=== PATIENT | male | born 1985 | race Caucasian/White ===

== ENCOUNTER 2016-10-05 13:57 | Emergency (ER) | payer OTHER ==
[~2016-10-05] VITALS: Ht 165.1 cm; Wt 84.0 kg
[~2016-10-05 13:57] MED LIST: BACTRIM DS1 TAB PO; MOTRIN800 MG PO; PRILOSEC40 MG PO
[2016-10-05 16:19] LABS: BASOPHIL % 0.4 % (0-2); PLATELET COUNT 211 x10^3mcL (130-400); RED CELL DISTRIBUTION WIDTH 13.6 % (11.5-14.5)
[2016-10-05 16:20] LABS: CARBON DIOXIDE 31.7 mmol/L (21-32); POTASSIUM SERUM 4.8 mmol/L (3.5-5.1)
[2016-10-05 16:22] LABS: CREATININE SERUM 14.5 mg/dL (0.7-1.3)
[2016-10-05 17:44] VITALS: BP 128/74
== END 2016-10-05 17:44 | disposition home or self-care (01) ==
LOC: ED 13:57
PROVIDERS: Emergency Medicine
DX: R07.89 Other chest pain (principal); F41.9 Anxiety disorder, unspecified; I12.0 Hypertensive chronic kidney disease with stage 5 chronic kidney disease or end stage renal disease; N18.6 End stage renal disease
CPT/HCPCS: 36415; Q0092

== ENCOUNTER 2017-01-23 06:53 | Inpatient (IN) | payer OTHER ==
[~2017-01-23] VITALS: Ht 165.1 cm; Wt 73.9 kg
--- NOTE | 2017-01-23 07:11 | NUR ---
REC'D A 31/M IN [facility]THO WITH C/O SOB SINCE 4AM. PER MEDIC, PT REPORTS LEFT STERNAL CHEST PAIN, AND "ITS DIFFICULT TO TAKE DEEP BREATH". PT DESCRIBES THE PAIN INTERMITTENT, SHARP, NONRADIATING, NONPROVOKED. HX OF DIALYSIS. PT AAOX4, SPEAKING IN CLEAR COMPLETE SENTENCES, RESP E/U, SHUNT NOTED TO LEFT FOREARM. ON CM, CALL LIGHT WITHIN REACH, WILL CONTINUE TO MONITOR.
--- NOTE | 2017-01-23 07:16 | NUR ---
REPORT GIVEN TO JUSTIN BOND TO ASSUME CARE OF THE PT.
--- NOTE | 2017-01-23 07:24 | NUR ---
UNABLE TO START IV AND GIVE ORDERED MEDICATIONS AT THIS TIME DUE TO PATIENT DECLINING. EXPLAINED IMPORTANCE OF MEDICATIONS TO PATIENT; WILL TRY AGAIN AFTER A FEW MINS.
[2017-01-23 07:32] LABS: BASOPHIL % 0.5 % (0-2); PLATELET COUNT 192 x10^3mcL (130-400); RED CELL DISTRIBUTION WIDTH 13.7 % (11.5-14.5)
[2017-01-23 07:43] LABS: BILIRUBIN TOTAL 1.1 mg/dL (0.20-1.00); CALCIUM 8.3 mg/dL (8.5-10.1); CARBON DIOXIDE 31.5 mmol/L (21-32); TOTAL PROTEIN, SERUM 6.6 g/dL (6.4-8.2)
[2017-01-23 07:58] LABS: ALBUMIN 3.2 g/dL (3.4-5.0); CREATININE SERUM 11.2 mg/dL (0.7-1.3)
[2017-01-23] MEDS ORDERED: TOPROL XL25 MG (08:01)
[2017-01-23] MEDS ORDERED: NORVASC2.5 MG (08:01)
[2017-01-23] MEDS ORDERED: VELPHORO500 MG (08:02)
--- NOTE | 2017-01-23 08:11 | NUR ---
PT C/O NAUSEA; ZOFRAN GIVEN IVP.
--- NOTE | 2017-01-23 08:11 | NUR ---
IV STARTED AND PT MEDICATED PER MD ORDER. SEE EMAR.
--- NOTE | 2017-01-23 08:20 | NUR ---
PT STATES HE GETS DIALYSIS MWF AND DID GO TO DIALYSIS ON TUESDAY. PT HAS SHUNT ON LEFT ARM.
[2017-01-23 08:29] LABS: T3 TOTAL 1.42 ng/mL
[2017-01-23 08:37] LABS: MAGNESIUM 2.5 mg/dL (1.8-2.4); PHOSPHOROUS 6.6 mg/dL (2.5-4.9)
[2017-01-23 08:41] LABS: CHOLESTEROL/HDL RATIO 4.2
[2017-01-23 08:46] LABS: FREE T4 1.32 ng/dL (0.76-1.46); FREE THYROXINE INDEX 3.1 ug/dL (1.4-4.5); T4(THYROXINE) 9.5 ug/dL (4.7-13.3)
--- NOTE | 2017-01-23 09:01 | NUR ---
PT IS RESTING ON GURNEY IN NO ACUTE DISTRESS. PT REPORTS HE IS ABLE TO BREATHE BETTER AND HAS NO PAIN.
--- NOTE | 2017-01-23 09:50 | NUR ---
PT SLEEPING; ON FULL CM; NO S/S OF DISTRESS.
--- NOTE | 2017-01-23 10:05 | NUR ---
PT STATES HE IS UNABLE TO GIVE URINE AT THIS TIME.
--- NOTE | 2017-01-23 10:55 | NUR ---
PAGE OUT TO RESIDENT BRENTON FOR DIET ORDER; PT ED HOLD DUE TO NO BEDS AT THIS TIME
--- NOTE | 2017-01-23 11:00 | NUR ---
SPOKE WITH DR. FARRIS FOR A DIET ORDER, REPORTS HE WILL PUT IN A DIET FOR PT
--- NOTE | 2017-01-23 12:02 | NUR ---
PT AAO4, NO ACUTE DISTRESS, C/O 08/14 HEADACHE, PT NSR ON CM, DENIES CHEST PAIN AND DENIES SOB, PT BP ELEVATED REPORTS HE DID NOT TAKE BP MEDS THIS AM, WILL CALL RESIDENT TO PUT IN PT HOME MEDS OR HTN MED
--- NOTE | 2017-01-23 12:09 | NUR ---
SPOKE WITH TO NOTIFY OF PT BP; PER HE WILL COME EVALUATE PT AND PLACE ORDERS FOR BP MEDS.
--- NOTE | 2017-01-23 12:16 | NUR ---
PT C/O HEADACHE. TYLENOL GIVEN PER ADMIT ORDER.
--- NOTE | 2017-01-23 12:20 | NUR ---
PT LUNCH TRAY ARRIVED; TRAY GIVEN TO PT.
--- NOTE | 2017-01-23 12:50 | NUR ---
CALLED PHARMACY TO VERIFY BP MEDS
--- NOTE | 2017-01-23 13:08 | NUR ---
REPORT TO SALMA ANDERSON TO ASSUME CARE OF PT
--- NOTE | 2017-01-23 14:25 | NUR ---
PT SITTING UP ON BED WATCHING TV AND EATING FRUIT. NO SIGNS OF SOB
--- NOTE | 2017-01-23 14:48 | NUR ---
REPORT CALLED TO JUSTIN DOMINGUEZ TO ASSUME CARE.
[2017-01-23 15:06] VITALS: BP 166/114
[2017-01-23 15:07] VITALS: BP 166/114
--- NOTE | 2017-01-23 15:14 | NUR ---
RECEIVED PATIENT FROM ED VIA GUERNEY, PATIENT ALERT AND ORIENTED, TELE # 55 SR, IV ACCESS TO RFA WNL, NO C/O PAIN AT THIS TIME, AV SHUNT TO LUE WITH BRUIT AND THRILL, ORIENTED PATIENT TO ROOM AND SURROUNDINGS, BED IN LOW POSITION, BED RAILS UP X 2, CALL LIGHT WITHIN REACH, WILL CONTINUE TO MONITOR
[2017-01-23 15:40] VITALS: BP 166/114
[2017-01-23 17:45] VITALS: BP 157/109
--- NOTE | 2017-01-23 18:02 | NUR ---
RECEIVED REPORT FROM ALBERTO ANDERSON. PT IN NO ACUTE DISTRESS AT THIS TIME. C/O SOB. RECEIVING 4L OXYGEN VIA NC. NO ACUTE RESP DISTRESS. DENIES CP OR PRESSURE. AV SHUNT TO L ARM WITH BRUIT/THRILL PRESENT. IVF INFUSING. BED IN LOW POSITION, CALL LIGHT WITHIN REACH. WILL CONTINUE TO MONITOR.
[2017-01-23 18:33] VITALS: BP 156/102
--- NOTE | 2017-01-23 18:33 | NUR ---
DR. FARRIS NOTIFIED OF BP 156/102. PT ASYMPTOMATIC AT THIS TIME. WILL CONTINUE TO MONITOR.
[2017-01-23] MEDS ORDERED: SENSIPAR90 MG PO (19:52)
--- NOTE | 2017-01-23 19:57 | NUR ---
PT CURRENTLY RESTING IN BED, NO ACUTE DISTRESS. A/O X4. TELE #55 SHOWING SINUS RHYTHM, DENIES CHEST PAIN. PULSES PALPABLE IN ALL EXTREMITIES, NO EDEMA NOTED. LUNG SOUNDS DIMINISHED IN BILATERAL BASES, PT C/O MILD SOB, O2 SAT 95%. BOWEL SOUNDS ACTIVE, LAST BM 01/23/17. OLIGURIC. AV SHUNT NOTED TO PAULETTE LEE MWF. AMBULATORY. SKIN INTACT. DENIES PAIN AT THIS TIME. IV PATENT AND INTACT. BED IN LOWEST POSITION, SIDE RAILS UP X2, CALL LIGHT WITHIN REACH. WILL CONTINUE TO MONITOR.
[2017-01-23 20:48] VITALS: BP 157/104
--- NOTE | 2017-01-23 23:37 | NUR ---
PT C/O SOB, O2 SAT 95%. RT NOTIFIED FOR BREATHING TREATMENT. WILL CONTINUE TO MONITOR.
--- NOTE | 2017-01-24 00:50 | NUR ---
PT CURRENTLY RESTING IN BED, NO ACUTE DISTRESS. WILL CONTINUE TO MONITOR.
[2017-01-24 05:34] VITALS: BP 158/99
--- NOTE | 2017-01-24 06:10 | NUR ---
PT SLEPT PERIODICALLY THROUGHOUT NIGHT, NO ACUTE DISTRESS. ALL NEEDS MET AND ATTENDED TO. NO SIGNIFICANT CHANGES. IV PATENT AND INTACT. BED IN LOWEST POSITION, SIDE RAILS UP X2, SCDS IN PLACE, CALL LIGHT WITHIN REACH. WILL ENDORSE CARE TO ONCOMING NURSE.
--- NOTE | 2017-01-24 08:00 | NUR ---
AAO TIMES 4. TELE # 55 ST 108. LUNGS CTA BUL, SLIGHTLY DIMINISHED RLL. O2 SAT ON 2L NC 98%. BS'S ACTIVE TIMES 4. [place] STRONG. PT DENIES CHEST PAIN, JUST FEELS SOB. PERIPHERAL PULSES PALPABLE. NO EDEMA. AV SHUNT TO LFA WITH GOOD BRUIT/THRILL. SCD BLE. COOPERATIVE.
--- NOTE | 2017-01-24 08:35 | NUR ---
MEDICAL ROUNDS WITH DR ANGELO AND THE MEDICINE TEAM AT 0835. THE PLAN TODAY IS TO GET HD. THEY ARE AWARE THAT THE LATEST BP IS 160/104. PT WILL BE DC'D HOME TOMORROW.
[2017-01-24 08:59] VITALS: BP 160/104
[2017-01-24 13:02] VITALS: BP 156/101
--- NOTE | 2017-01-24 18:00 | NUR ---
AAO TIMES 4. PT'S PRESENT. HE IS ASKING WHEN HE WILL GET HD. TELE # 55 SR 98. SL RFA CDI. COOPERATIVE, BUT IS GETTING IMPATIENT TO GET HD. I TOLD HIM ANOTHER PT IS GETTING HD NOW, AND HES NEXT.
[2017-01-24 18:16] VITALS: BP 168/110
--- NOTE | 2017-01-24 20:00 | NUR ---
PT A/A/O X4. DENIES DIZZINESS AND HEADACHE. BREATH SOUNDS DIMINISHED GENEVIEVE BASES. C/O MILD DIFFICULTY BREATHING. SPO2 94% ON ROOM AIR. PT WAS PUT ON 2L NC. DENIES CHEST PAIN AND PRESSURE THUS FAR, HR 94. BOWEL SOUNDS ACTIVE. NO C/O N/V AND ABD PAIN. AV SHUNT NOTED ON THE LEFT FOREARM WITH POSITIVE BRUIT AND THRILL. HEMODIALYSIS NURSE AT BEDSIDE PREPARING FOR HEMODIALYSIS. IV HEPLOCK INTACT ON THE RIGHT FOREARM. MADE PT COMFORTABLE. PLACED CALL LIGHT WITH IN REACH. WILL CONTINUE TO MONITOR.
[2017-01-24 21:09] VITALS: BP 182/103
--- NOTE | 2017-01-24 21:21 | NUR ---
PATIENTS BLOOD PRESSURE IS 182/103 HR 92. PT CURRENTLY ON HEMODIALYSIS. PT STATED "I DONT WANT ANY BP MEDICATION CAUSE I TANK AFTER HEMODIALYSIS. DR. LONGORIA NOTIFIED. WILL CONTINUE TO MONITOR.
--- NOTE | 2017-01-24 23:06 | NUR ---
PT HEMODIALYSIS DONE. 2.9 LITERS OUT. PT TOLERATED IT WELL. BP 169/83, HR 84. DR. LONGORIA AWARE. NO NEW ORDERS GIVEN. WILL CONTINUE TO MONITOR.
[2017-01-24 23:08] VITALS: BP 169/83
[2017-01-25 00:25] VITALS: BP 153/89
--- NOTE | 2017-01-25 00:25 | NUR ---
PATIENTS BLOOD PRESSURE, 1 HOUR AFTER HEMODIALYSIS IS 153/89 HR 89. WILL CONTINUE TO MONITOR.
[2017-01-25 05:08] VITALS: BP 172/108
--- NOTE | 2017-01-25 05:30 | NUR ---
PT BLOOD PRESSURE 172/108. GAVE PT CATAPRES PO. PT TOLERATED IT WELL. WILL CONTINUE TO MONITOR.
--- NOTE | 2017-01-25 06:29 | NUR ---
PATIENTS BP IS 154/107, HR 76. GAVE PT SCHEDULED METOPROLOL PO EARLY. PT TOLERATED IT WELL. WILL ENDORSE TO THE AM NURSE ACCORDINGLY.
--- NOTE | 2017-01-25 06:31 | NUR ---
LAB CALLED SAYING PATIENTS WANTS LAB DRAW AFTER PT WAKES UP. WILL ENDORSE TO THE AM NURSE ACCORDINGLY.
[2017-01-25 06:36] VITALS: BP 154/107
[2017-01-25 07:03] VITALS: BP 144/96
--- NOTE | 2017-01-25 08:00 | NUR ---
AAO TIMES 4. TELE # 55 SR. BP CURRRENTLY 144/96 THIS AM AT 0703. LUNGS CTA. NO SOB. O2 SAT ON RA 97%. BS'S ACTIVE TIMES 4. LFA AV SHUNT WITH BRUIT AND THRILL. PERIPHERAL PULSES PALPABLE. NO EDEMA. COOPERATIVE. SL TO RFA CDI, PATENT.
[2017-01-25 08:22] LABS: BASOPHIL % 0.5 % (0-2); PLATELET COUNT 192 x10^3mcL (130-400); RED CELL DISTRIBUTION WIDTH 13.7 % (11.5-14.5)
--- NOTE | 2017-01-25 08:24 | NUR ---
DR PULIDO AND THE MEDICINE TEAM SAW PT THIS AM AT 0824, THE PLAN IS TO DC HIM AROUND LUNCH TIME.
[2017-01-25 08:39] LABS: CALCIUM 9.1 mg/dL (8.5-10.1); MAGNESIUM 2.5 mg/dL (1.8-2.4)
[2017-01-25 08:41] LABS: CREATININE SERUM 10.5 mg/dL (0.7-1.3)
[2017-01-25 09:12] VITALS: BP 154/97
[2017-01-25 12:59] VITALS: BP 154/97
--- NOTE | 2017-01-25 13:15 | NUR ---
DC'D SL ANGIO INTACT. GAVE DISCHARGE INSTRUCTIONS. PT VERBALIZED "I UNDERSTAND" TO ALL INSTRUCTIONS.
== END 2017-01-25 13:18 | disposition home or self-care (01) | DRG 203 ==
LOC: ED 06:53 → DU 07:33
PROVIDERS: Emergency Medicine; ADMIT Family Medicine Sports Medicine
PROC: 5A1D70Z Performance of Urinary Filtration, Intermittent, Less than 6 Hours Per Day (ICD-10-PCS; principal; 2017-01-24)
DX: M94.0 Chondrocostal junction syndrome [Tietze] (principal); N17.0 Acute kidney failure with tubular necrosis; J81.0 Acute pulmonary edema; I12.0 Hypertensive chronic kidney disease with stage 5 chronic kidney disease or end stage renal disease; N18.6 End stage renal disease; E44.0 Moderate protein-calorie malnutrition; E83.41 Hypermagnesemia; E83.51 Hypocalcemia; E83.39 Other disorders of phosphorus metabolism; Z99.2 Dependence on renal dialysis; Z68.29 Body mass index [BMI] 29.0-29.9, adult; D64.9 Anemia, unspecified
CPT/HCPCS: 83880; 84439; J1940; J2405; J3010; J3475; J7030; J7620; Q0092

== ENCOUNTER 2017-05-02 18:50 | Inpatient (IN) | payer OTHER ==
[~2017-05-02] VITALS: Ht 165.1 cm; Wt 73.1 kg
[~2017-05-02 18:50] MED LIST changes: +NORVASC2.5 MG; +SENSIPAR90 MG PO; +TOPROL XL25 MG; +VELPHORO500 MG
[2017-05-02 18:58] VITALS: Ht 165.1 cm; Wt 73.1 kg
[2017-05-02 20:01] LABS: BASOPHIL % 0.6 % (0-2); PLATELET COUNT 241 x10^3mcL (130-400)
[2017-05-02 20:03] LABS: RED CELL DISTRIBUTION WIDTH 15.6 % (11.5-14.5)
[2017-05-02 20:32] LABS: BILIRUBIN TOTAL 0.93 mg/dL (0.20-1.00); CALCIUM 9.1 mg/dL (8.5-10.1); CARBON DIOXIDE 29.2 mmol/L (21-32); MAGNESIUM 2.4 mg/dL (1.8-2.4); POTASSIUM SERUM 4.2 mmol/L (3.5-5.1); TOTAL PROTEIN, SERUM 6.6 g/dL (6.4-8.2)
[2017-05-02 20:37] LABS: CREATININE SERUM 10.7 mg/dL (0.7-1.3)
[2017-05-02 20:39] LABS: T3 TOTAL 0.76 ng/mL
[2017-05-02 21:03] LABS: FREE T4 1.51 ng/dL (0.76-1.46); FREE THYROXINE INDEX 3.4 ug/dL (1.4-4.5); T4(THYROXINE) 8.9 ug/dL (4.7-13.3)
[2017-05-02 22:17] LABS: IRON 43 ug/dL (65-170)
[2017-05-02 22:18] LABS: TOTAL IRON BINDING CAPACITY 191 ug/dL (250-450)
[2017-05-02 22:21] LABS: PHOSPHOROUS 5.6 mg/dL (2.5-4.9)
[2017-05-02 22:22] LABS: CHOLESTEROL/HDL RATIO 3.4
[2017-05-02 22:28] VITALS: BP 158/109
[2017-05-02 22:41] VITALS: BP 154/98
[2017-05-02 23:03] LABS: RED BLOOD CELLS 4.6 M/mm3 (4.52-5.90)
[2017-05-03] VITALS (9 sets, daily range): BP systolic 155–188; BP diastolic 96–119
[2017-05-03 06:21] LABS: BASOPHIL % 0.4 % (0-2); PLATELET COUNT 198 x10^3mcL (130-400)
[2017-05-03 06:56] LABS: RED CELL DISTRIBUTION WIDTH 15.5 % (11.5-14.5)
[2017-05-03 08:15] LABS: CALCIUM 9.1 mg/dL (8.5-10.1); CARBON DIOXIDE 24.5 mmol/L (21-32); MAGNESIUM 2.4 mg/dL (1.8-2.4); PHOSPHOROUS 6.6 mg/dL (2.5-4.9); POTASSIUM SERUM 4.9 mmol/L (3.5-5.1)
[2017-05-04 00:08] VITALS: BP 156/82
[2017-05-04 05:43] LABS: BASOPHIL % 0.1 % (0-2); PLATELET COUNT 200 x10^3mcL (130-400)
[2017-05-04 05:53] LABS: RED CELL DISTRIBUTION WIDTH 15.7 % (11.5-14.5)
[2017-05-04 05:59] LABS: CALCIUM 9.5 mg/dL (8.5-10.1); CARBON DIOXIDE 26.8 mmol/L (21-32); MAGNESIUM 2.1 mg/dL (1.8-2.4); PHOSPHOROUS 5.4 mg/dL (2.5-4.9); POTASSIUM SERUM 4.6 mmol/L (3.5-5.1)
[2017-05-04 06:02] LABS: CREATININE SERUM 10.1 mg/dL (0.7-1.3)
[2017-05-04 06:27] VITALS: BP 141/86
[2017-05-04 19:20] VITALS: BP 158/77
[2017-05-04 23:39] VITALS: BP 161/91
[2017-05-05 03:21] VITALS: BP 145/79
[2017-05-05 05:54] LABS: BASOPHIL % 0.4 % (0-2); PLATELET COUNT 165 x10^3mcL (130-400); RED CELL DISTRIBUTION WIDTH 15.5 % (11.5-14.5)
[2017-05-05 06:43] LABS: CALCIUM 9.6 mg/dL (8.5-10.1); CARBON DIOXIDE 28.8 mmol/L (21-32); MAGNESIUM 2.2 mg/dL (1.8-2.4); PHOSPHOROUS 6.7 mg/dL (2.5-4.9); POTASSIUM SERUM 4.3 mmol/L (3.5-5.1)
[2017-05-05 07:03] LABS: CREATININE SERUM 8.7 mg/dL (0.7-1.3)
[2017-05-05 08:00] VITALS: BP 142/93
[2017-05-05 12:00] VITALS: BP 146/90
[2017-05-05 16:08] VITALS: BP 152/89
[2017-05-05 20:25] VITALS: BP 141/94
[2017-05-05 22:49] VITALS: BP 168/83
[2017-05-06 00:09] VITALS: BP 157/103
[2017-05-06 01:32] VITALS: BP 148/96
[2017-05-06 06:13] VITALS: BP 151/98
[2017-05-06 09:36] VITALS: BP 159/103
[2017-05-06 13:20] VITALS: BP 150/94
[2017-05-06 21:09] VITALS: BP 158/99
[2017-05-07] VITALS (7 sets, daily range): BP systolic 138–169; BP diastolic 78–108
[2017-05-07 06:55] LABS: BASOPHIL % 0.6 % (0-2); PLATELET COUNT 225 x10^3mcL (130-400)
[2017-05-07 07:13] LABS: RED CELL DISTRIBUTION WIDTH 15.2 % (11.5-14.5)
[2017-05-07 07:29] LABS: CALCIUM 9.2 mg/dL (8.5-10.1); CARBON DIOXIDE 28.3 mmol/L (21-32); PHOSPHOROUS 5.1 mg/dL (2.5-4.9); POTASSIUM SERUM 3.5 mmol/L (3.5-5.1)
[2017-05-07 07:44] LABS: CREATININE SERUM 6.1 mg/dL (0.7-1.3)
== END 2017-05-07 16:53 | disposition home or self-care (01) | DRG 720 ==
LOC: ED 18:50 → DU 21:07 → IC 21:07 → DU 22:35 → IC 05-03 19:08 → DU 05-06 00:06
PROVIDERS: Emergency Medicine; Family Medicine
DX: A41.9 Sepsis, unspecified organism (principal); J96.01 Acute respiratory failure with hypoxia; N17.0 Acute kidney failure with tubular necrosis; K21.9 Gastro-esophageal reflux disease without esophagitis; I50.43 Acute on chronic combined systolic (congestive) and diastolic (congestive) heart failure; J69.0 Pneumonitis due to inhalation of food and vomit; E44.0 Moderate protein-calorie malnutrition; I13.2 Hypertensive heart and chronic kidney disease with heart failure and with stage 5 chronic kidney disease, or end stage renal disease; N18.6 End stage renal disease; N25.81 Secondary hyperparathyroidism of renal origin; I16.0 Hypertensive urgency; K52.9 Noninfective gastroenteritis and colitis, unspecified; Z99.2 Dependence on renal dialysis; Z68.26 Body mass index [BMI] 26.0-26.9, adult; D63.1 Anemia in chronic kidney disease
CPT/HCPCS: 36600; 83880; 84439; C9113; J0696; J1940; J2405; J2543; J3490; J7030; J7050; J7620; Q0092; Q9967

== ENCOUNTER 2017-05-10 20:09 | Inpatient (IN) | payer OTHER ==
[~2017-05-10] VITALS: Ht 165.1 cm; Wt 73.6 kg
[2017-05-10 21:38] LABS: BASOPHIL % 0.1 % (0-2); PLATELET COUNT 295 x10^3mcL (130-400)
[2017-05-10 21:39] LABS: RED CELL DISTRIBUTION WIDTH 14.8 % (11.5-14.5)
[2017-05-10 21:57] LABS: BILIRUBIN TOTAL 0.77 mg/dL (0.20-1.00); CALCIUM 9.3 mg/dL (8.5-10.1); CARBON DIOXIDE 29.7 mmol/L (21-32); POTASSIUM SERUM 4.1 mmol/L (3.5-5.1); TOTAL PROTEIN, SERUM 7.1 g/dL (6.4-8.2)
[2017-05-10] MEDS ORDERED: AMLODIPINE BESY10 M2 PO (22:46)
[2017-05-10] MEDS ORDERED: LISINOPRIL10 MG PO (22:46)
[2017-05-10] MEDS ORDERED: METOPROLOL SUCC50 M2 PO (22:46)
[2017-05-10 23:46] VITALS: BP 170/107
[2017-05-10 23:58] VITALS: BP 170/107
[2017-05-11] VITALS (7 sets, daily range): BP systolic 126–170; BP diastolic 80–107; Ht 165.1 cm; Wt 73.6 kg
[2017-05-11 00:23] LABS: MAGNESIUM 2.4 mg/dL (1.8-2.4); PHOSPHOROUS 6.2 mg/dL (2.5-4.9)
[2017-05-11 00:31] LABS: FREE T4 1.6 ng/dL (0.76-1.46); FREE THYROXINE INDEX 3.7 ug/dL (1.4-4.5); T4(THYROXINE) 10.9 ug/dL (4.7-13.3)
[2017-05-11 00:32] LABS: CHOLESTEROL/HDL RATIO 4.1
[2017-05-11 00:49] LABS: T3 TOTAL 0.84 ng/mL
[2017-05-11 06:43] LABS: PLATELET COUNT 251 x10^3mcL (130-400)
[2017-05-11 06:56] LABS: CARBON DIOXIDE 30.1 mmol/L (21-32); POTASSIUM SERUM 4.1 mmol/L (3.5-5.1)
[2017-05-11 06:57] LABS: CREATININE SERUM 10.2 mg/dL (0.7-1.3)
[2017-05-11 11:17] LABS: BAND NEUTROPHIL 5 % (0-10); BASOPHIL 0 % (0-2); MONOCYTE 7 % (0-7); SEGMENTED NEUTROPHILS 82 % (37-75)
[2017-05-11 11:18] LABS: PLATELET MORPHOLOGY PLATELETS NORMAL
[2017-05-11 11:19] LABS: ovalocyte/elliptocyte 1+; rbc morphology (normal/abnorm) ABNORMAL (NORMAL); tear drop cell (dacryocyte) 1+
[2017-05-12 05:40] VITALS: BP 140/91
[2017-05-12 06:28] LABS: BASOPHIL % 0.6 % (0-2); PLATELET COUNT 258 x10^3mcL (130-400)
[2017-05-12 06:29] LABS: CALCIUM 9.3 mg/dL (8.5-10.1); CARBON DIOXIDE 27.9 mmol/L (21-32); MAGNESIUM 2.1 mg/dL (1.8-2.4); PHOSPHOROUS 5.9 mg/dL (2.5-4.9); POTASSIUM SERUM 4.4 mmol/L (3.5-5.1)
[2017-05-12 06:36] LABS: CREATININE SERUM 6.9 mg/dL (0.7-1.3)
[2017-05-12 06:48] LABS: RED CELL DISTRIBUTION WIDTH 14.8 % (11.5-14.5)
[2017-05-12 09:15] VITALS: BP 139/90
[2017-05-12] MEDS ORDERED: PRI20 PO (10:17)
[2017-05-12] MEDS ORDERED: NOR10 PO (11:10)
[2017-05-12] MEDS ORDERED: AUG500 PO (11:12)
[2017-05-12 13:16] VITALS: BP 139/90
[2017-05-12 13:56] VITALS: BP 132/91
[2017-05-12] MEDS ORDERED: GAS RELIEF EXT125 MG PO (14:30)
== END 2017-05-12 15:32 | disposition home or self-care (01) | DRG 470 ==
LOC: ED 20:09 → DU 20:24 → MU 05-12 07:59
PROVIDERS: Emergency Medicine; Family Medicine
PROC: 5A1D70Z Performance of Urinary Filtration, Intermittent, Less than 6 Hours Per Day (ICD-10-PCS; principal; 2017-05-10)
DX: I12.0 Hypertensive chronic kidney disease with stage 5 chronic kidney disease or end stage renal disease (principal); N17.0 Acute kidney failure with tubular necrosis; J69.0 Pneumonitis due to inhalation of food and vomit; N18.6 End stage renal disease; D72.829 Elevated white blood cell count, unspecified; Z99.2 Dependence on renal dialysis; E21.5 Disorder of parathyroid gland, unspecified; E02 Subclinical iodine-deficiency hypothyroidism; K57.30 Diverticulosis of large intestine without perforation or abscess without bleeding; D63.1 Anemia in chronic kidney disease; N25.81 Secondary hyperparathyroidism of renal origin
CPT/HCPCS: 83880; 84439; 94150; J2270; J2405; J2543; J7030

== ENCOUNTER 2017-05-18 19:53 | Inpatient (IN) | payer OTHER ==
[~2017-05-18] VITALS: Ht 165.1 cm; Wt 79.4 kg
[~2017-05-18 19:53] MED LIST changes: +AMLODIPINE BESY10 M2 PO; +AUG500 PO; +COLACE100 MG PO; +GAS RELIEF EXT125 MG PO; +LISINOPRIL10 MG PO; +LOP50 PO; +METOPROLOL SUCC50 M2 PO; +NOR10 PO; +NOR5 PO; +NORCO1 TA2 PO; +PRI20 PO; +PRILOSEC10 MG PO; +REN800 PO; +VITAMIN D32000 I2 PO
[2017-05-18 22:04] LABS: BASOPHIL % 0.6 % (0-2); PLATELET COUNT 315 x10^3mcL (130-400)
[2017-05-18 22:06] LABS: RED CELL DISTRIBUTION WIDTH 15.3 % (11.5-14.5)
[2017-05-18 22:22] LABS: BILIRUBIN TOTAL 0.7 mg/dL (0.20-1.00); CALCIUM 9.6 mg/dL (8.5-10.1); CARBON DIOXIDE 31.8 mmol/L (21-32); POTASSIUM SERUM 3.5 mmol/L (3.5-5.1); TOTAL PROTEIN, SERUM 6.8 g/dL (6.4-8.2)
[2017-05-18 22:26] LABS: ALBUMIN 2.9 g/dL (3.4-5.0)
[2017-05-18 22:30] LABS: CREATININE SERUM 6.4 mg/dL (0.7-1.3)
[2017-05-19] VITALS (8 sets, daily range): BP systolic 133–182; BP diastolic 85–97
[2017-05-19] MEDS ORDERED: NOR10 PO (00:56)
[2017-05-19] MEDS ORDERED: SENSIPAR30 M1 PO (01:00)
[2017-05-19] MEDS ORDERED: LISINOPRIL10 MG PO (01:00)
[2017-05-19] MEDS ORDERED: GOOD SENSE OMEP20 MG PO (01:01)
[2017-05-19] MEDS ORDERED: METOPROLOL SUCC50 M2 PO (01:01)
[2017-05-19] MEDS ORDERED: GAS-X125 MG PO (01:02)
[2017-05-19 02:08] LABS: MAGNESIUM 2.1 mg/dL (1.8-2.4); PHOSPHOROUS 3.3 mg/dL (2.5-4.9)
[2017-05-19 02:13] LABS: T3 TOTAL 0.97 ng/mL
[2017-05-19 02:17] LABS: CHOLESTEROL/HDL RATIO 4.2
[2017-05-19 02:26] LABS: FREE T4 1.54 ng/dL (0.76-1.46); FREE THYROXINE INDEX 4.1 ug/dL (1.4-4.5); T4(THYROXINE) 11.4 ug/dL (4.7-13.3)
[2017-05-19 07:53] LABS: BASOPHIL % 0.9 % (0-2); PLATELET COUNT 282 x10^3mcL (130-400)
[2017-05-19 07:56] LABS: RED CELL DISTRIBUTION WIDTH 15.2 % (11.5-14.5)
[2017-05-19 08:27] LABS: CREATININE SERUM 7.5 mg/dL (0.7-1.3)
[2017-05-20 06:15] VITALS: BP 140/91
[2017-05-20 07:32] LABS: BASOPHIL % 0.7 % (0-2); PLATELET COUNT 241 x10^3mcL (130-400)
[2017-05-20 09:20] VITALS: BP 154/102
[2017-05-20 09:44] LABS: CALCIUM 9.2 mg/dL (8.5-10.1); CARBON DIOXIDE 29.2 mmol/L (21-32); MAGNESIUM 2.4 mg/dL (1.8-2.4); PHOSPHOROUS 7.3 mg/dL (2.5-4.9); POTASSIUM SERUM 4.1 mmol/L (3.5-5.1)
[2017-05-20 09:48] LABS: CREATININE SERUM 10.2 mg/dL (0.7-1.3)
[2017-05-20 12:47] VITALS: BP 156/91
[2017-05-20 17:28] VITALS: BP 151/99
[2017-05-20 22:11] VITALS: BP 157/96
[2017-05-21 06:00] VITALS: BP 155/94
[2017-05-21 07:38] LABS: BASOPHIL % 0.8 % (0-2); PLATELET COUNT 227 x10^3mcL (130-400)
[2017-05-21 07:53] LABS: RED CELL DISTRIBUTION WIDTH 14.9 % (11.5-14.5)
[2017-05-21 07:58] LABS: CALCIUM 9.1 mg/dL (8.5-10.1); CARBON DIOXIDE 31.5 mmol/L (21-32); PHOSPHOROUS 5.7 mg/dL (2.5-4.9); POTASSIUM SERUM 3.9 mmol/L (3.5-5.1)
[2017-05-21 08:07] LABS: CREATININE SERUM 7.2 mg/dL (0.7-1.3)
[2017-05-21 08:47] VITALS: Ht 165.1 cm; Wt 79.4 kg
[2017-05-21 14:15] VITALS: BP 154/94
[2017-05-21 17:43] VITALS: BP 139/94
[2017-05-21 19:30] VITALS: BP 144/92
[2017-05-22 05:53] VITALS: BP 150/95
[2017-05-22 07:08] LABS: BASOPHIL % 0.7 % (0-2); PLATELET COUNT 219 x10^3mcL (130-400)
[2017-05-22 07:15] LABS: RED CELL DISTRIBUTION WIDTH 14.8 % (11.5-14.5)
[2017-05-22 07:29] LABS: CALCIUM 9.4 mg/dL (8.5-10.1); CARBON DIOXIDE 30.1 mmol/L (21-32); MAGNESIUM 2.2 mg/dL (1.8-2.4); PHOSPHOROUS 7.3 mg/dL (2.5-4.9); POTASSIUM SERUM 4.6 mmol/L (3.5-5.1)
[2017-05-22 07:37] LABS: CREATININE SERUM 9.8 mg/dL (0.7-1.3)
[2017-05-22] MEDS ORDERED: APAP/HYDROCODON1 T13 PO (14:30)
[2017-05-22] MEDS ORDERED: COL100 PO (14:30)
[2017-05-22] MEDS ORDERED: SIMETHICONE80 MG CH (14:30)
[2017-05-22] MEDS ORDERED: MIRUD PO (14:30)
[2017-05-22 15:18] VITALS: BP 140/99
[2017-05-22 15:21] VITALS: BP 140/99
== END 2017-05-22 16:12 | disposition home or self-care (01) | DRG 254 ==
LOC: ED 19:53 → DU 05-19 00:11 → MU 05-21 10:13
PROVIDERS: Emergency Medicine; Family Medicine; Student in an Organized Health Care Education/Training Program
DX: K92.9 Disease of digestive system, unspecified (principal); N17.0 Acute kidney failure with tubular necrosis; E43 Unspecified severe protein-calorie malnutrition; I50.43 Acute on chronic combined systolic (congestive) and diastolic (congestive) heart failure; I13.2 Hypertensive heart and chronic kidney disease with heart failure and with stage 5 chronic kidney disease, or end stage renal disease; N18.6 End stage renal disease; K57.30 Diverticulosis of large intestine without perforation or abscess without bleeding; Z68.26 Body mass index [BMI] 26.0-26.9, adult; D63.1 Anemia in chronic kidney disease; N25.81 Secondary hyperparathyroidism of renal origin; Q61.3 Polycystic kidney, unspecified; R14.0 Abdominal distension (gaseous)
CPT/HCPCS: 83880; 84439; 87338; J0360; J3010; J7030; Q0092; Q0162

== ENCOUNTER 2018-06-01 15:46 | Inpatient (IN) | payer OTHER ==
[~2018-06-01] VITALS: Ht 165.1 cm; Wt 71.0 kg
[~2018-06-01 15:46] MED LIST changes: +APAP/HYDROCODON1 T13 PO; +COL100 PO; +GAS-X125 MG PO; +GOOD SENSE OMEP20 MG PO; +MIRUD PO; +SENSIPAR30 M1 PO; +SIMETHICONE80 MG CH
[2018-06-01 15:56] VITALS: Ht 165.1 cm; Wt 71.0 kg
--- NOTE | 2018-06-01 16:20 | NUR ---
PATIENT PRESENTED TO THE ED WITH GENERALIZED ABDOMINAL PAIN. PATIENT A/O X 4 BREATHING EVEN AND UNLABORED. PATIENT HAS A HX OF RENAL FAILURE AND IS ON DIALYSIS 3 X A WEEK. SHUNT PLACED TO THE LEFT ARM. PATIENT STATES HE HAS HAD THIS PROBLEM BEFORE AND IT WAS CONSTIPATION. WILL CONTINUE TO MONITOR.
[2018-06-01 16:39] LABS: BASOPHIL % 0.1 % (0-2); PLATELET COUNT 195 x10^3mcL (130-400)
[2018-06-01 16:40] LABS: RED CELL DISTRIBUTION WIDTH 14.6 % (11.5-14.5)
[2018-06-01 16:56] LABS: BILIRUBIN TOTAL 1.07 mg/dL (0.20-1.00); CARBON DIOXIDE 32.5 mmol/L (21-32); POTASSIUM SERUM 4.3 mmol/L (3.5-5.1); TOTAL PROTEIN, SERUM 7.7 g/dL (6.4-8.2)
[2018-06-01 17:02] LABS: ALBUMIN 3.3 g/dL (3.4-5.0); CREATININE SERUM 9.3 mg/dL (0.7-1.3)
--- NOTE | 2018-06-01 17:55 | NUR ---
ADVISED PATIENT I NEEDED A URINE SAMPLE. PATIENT STATES HE IS UNABLE TO PROVIDE ONE RIGHT NOW. WILL CONTINUE TO FOLLOW UP.
[2018-06-01] MEDS ORDERED: HYDRALAZINE HCL25 MG PO (19:04)
[2018-06-01] MEDS ORDERED: SENSIPAR30 M1 PO (19:05)
[2018-06-01] MEDS ORDERED: ANAPROX DS550 MG PO (19:06)
[2018-06-01 19:11] LABS: CHOLESTEROL/HDL RATIO 3.7; MAGNESIUM 2.5 mg/dL (1.8-2.4); PHOSPHOROUS 5.4 mg/dL (2.5-4.9)
[2018-06-01] MEDS ORDERED: NORCO1 TA2 PO (19:15)
--- NOTE | 2018-06-01 19:33 | NUR ---
GAVE REPORT TO JUSTIN MOORE FOR CONTINUED CARE OF PATIENT.
--- NOTE | 2018-06-01 19:34 | NUR ---
REPORT GIVEN TO CRISTOBAL ANDERSON TO ASSUME CARE IN MST BY JUSTIN GAYR.
[2018-06-01 20:22] VITALS: BP 212/110
--- NOTE | 2018-06-01 20:25 | NUR ---
INFORMED DR. CLAROS PT HAVING SEVERE ABD PAIN 12/14.
--- NOTE | 2018-06-01 20:30 | NUR ---
RECEIVED PT FROM ED VIA CAMERON. ORIENTED PT TO ROOM AND SURROUNDINGS. IV NOTED TO RIGHT ARM PATENT AND INTATCT. INSTRUCTED PT ON THE USE OF CALL LIGHT FOR ASSISTANCE. ENDORSD PT TO PRIMARY NURSE CRISTOBAL
--- NOTE | 2018-06-01 21:50 | NUR ---
pt had ambulated twice to restroom. stated passing a lot of gas, had 1 episode of diarrhea. stated abd pain increases when he goes to the bathroom. bentyl capsules administered po.
--- NOTE | 2018-06-01 22:19 | NUR ---
late entry: - informed dr. brandt bp 220/110 new orders were received.
--- NOTE | 2018-06-01 22:20 | NUR ---
late entry: - informed dr. brandt pt still having severe abd pain after morphine administered. new orders received.
--- NOTE | 2018-06-01 22:21 | NUR ---
eyes closed, no moaning or grimacing at this time. hob kept elevated 30 deg. upper side rails in raised position, bed in lowest position. call light within easy reach. breathing even and unlabored.
--- NOTE | 2018-06-01 23:43 | NUR ---
DR. CLAROS WAS IN PT'S ROOM
--- NOTE | 2018-06-01 23:43 | NUR ---
AMBULATED TO RESTROOM, PASSED GAS
--- NOTE | 2018-06-02 01:02 | NUR ---
EYES CLOSED, BREATHING EVEN AND UNLABORED. SALINE LOCKED IV TO RIGHT FOREARM.
--- NOTE | 2018-06-02 01:41 | NUR ---
EYES CLOSED, LYING ON HIS RIGHT SIDE. NO GRIMACING OR MOANING NOTED. BREATHING EVEN AND UNLABORED ON ROOM AIR. CALL LIGHT WITHIN EASY REACH. HOB ELEVATED 30 DEG. CALL LIGHT WITHIN EASY REACH.
--- NOTE | 2018-06-02 03:00 | NUR ---
EYES CLOSED, BREATHING EVEN AND UNLABORED ON ROOM AIR. HOB KEPT ELEVATED 3O DEG. CALL LIGHT WITHIN EASY REACH.
[2018-06-02 05:53] VITALS: BP 172/84
[2018-06-02 06:13] VITALS: BP 131/76
--- NOTE | 2018-06-02 06:17 | NUR ---
EYES CLOSED, BREATHING EVEN AND UNLABORED ON ROOM AIR. LYING ON RIGHT SIDE. IVPB FLAGYL INFUSING WELL. IV SITE TO RIGHT FOREARM FREE FROM ERYTHEMA OR SWELLING. CALL LIGHT WTIHIN EASY REACH.
--- NOTE | 2018-06-02 07:05 | NUR ---
REPORT RCD FROM JUSTIN JAIN. PATIENT AWAKE, ALERT, NO DISTRESS NOTED. REPORTS PAIN IN ABDOMEN IS MUCH BETTER. IV TO RFA, SALINE LOCK, SITE WITHOUT COMPLICATIONS. BED LOW, CALL LIGHT WITHIN REACH. WILL MONITOR.
--- NOTE | 2018-06-02 07:10 | NUR ---
AWAKE AND ALERT, STATED COMFORTABLE AT THIS TIME. PAIN TO ABD 03/16. INFORMED PT DIET HAS BEEN CHANGED TO CLEAR LIQUID. ENDORSED TO NURSE LISBETH
--- NOTE | 2018-06-02 07:30 | NUR ---
SHIFT ASSESSMENT PERFORMED AND DOCUMENTED. PATIENT HAS HEMODIALYSIS ACCESS TO LFA, THRILL PRESENT, SITE WITHOUT REDNESS OR DRAINAGE. PATIENT REPORTS HE DOES NOT URINATE. DENIES PAIN AT THIS TIME. DISCUSSED ADVANCING DIET SLOWLY TO AVOID RETURN OF PAIN SYMPTOMS. PATIENT AGREES. DENIES KAIN/VTG AT THIS TIME. REPORTS LOOSE STOOL YESTERDAY. HEMODIALYSIS PLANNED FOR TODAY. NO OTHER NEEDS AT THIS TIME. WILL MONITOR.
[2018-06-02 07:36] LABS: CALCIUM 10.1 mg/dL (8.5-10.1); CARBON DIOXIDE 29.9 mmol/L (21-32); MAGNESIUM 2.7 mg/dL (1.8-2.4); PHOSPHOROUS 5.7 mg/dL (2.5-4.9); POTASSIUM SERUM 4.6 mmol/L (3.5-5.1)
[2018-06-02 07:37] LABS: CREATININE SERUM 11.3 mg/dL (0.7-1.3)
[2018-06-02 07:43] LABS: BASOPHIL % 0.2 % (0-2); PLATELET COUNT 160 x10^3mcL (130-400)
--- NOTE | 2018-06-02 09:42 | NUR ---
PATIENT STATES THAT NOW HE IS HAVING 8/10 ABDOMINAL PAIN. TRIED TO GO TO THE BATHROOM, BUT ONLY PASSING GAS. MORPHINE GIVEN PER MAY. WILL MONITOR.
--- NOTE | 2018-06-02 10:42 | NUR ---
PATIENT COMPLAINING OF NAUSEA, ZOFRAN GIVEN PER MAY. MD ROUNDS. PATIENT TO HAVE HEMODIALYSIS TODAY, POSSIBLE DISCHARGE TOMORROW. DOCTOR INFORMED PATIENT WITH ABDOMINAL PAIN, GIVEN MORPHINE, NOW WITH NAUSEA, ZOFRAN BEING GIVEN.
[2018-06-02 11:03] VITALS: BP 157/91
--- NOTE | 2018-06-02 13:03 | NUR ---
PATIENT RECEIVING HEMODIALYSIS AT THIS TIME. PROVIDED NURSE WITH LABS AND ORDER. PER HD NURSE, HOLD APRESOLINE AND FLAGYL AT THIS TIME. PATIENT REPORTS STOMACH PAIN BETTER AT THIS TIME, NO NAUSEA AT THIS TIME.
--- NOTE | 2018-06-02 15:00 | NUR ---
PATIENT STILL RECEIVING DIALYSIS. HD NURSE AT BEDSIDE. PATIENT ASLEEP, REGULAR RESPS.
--- NOTE | 2018-06-02 16:22 | NUR ---
PATIENT FINISHED WITH HEMODIALYSIS, 2 LITERS REMOVED. PATIENT REPORTING INCREASING NAUSEA AND AFTER BM INCREASING ABDOMINAL PAIN, 10/14. ASKING FOR PAIN MED AND NAUSEA MED. GIVEN PER MAY. PATIENT HAD "GREEN JELLO" BM. LOWERED LIGHTS AND CLOSED DOOR PER PATIENT REQUEST SO HE CAN REST.
[2018-06-02 18:08] VITALS: BP 149/74
--- NOTE | 2018-06-02 19:33 | NUR ---
REPORT GIVEN TO JUSTIN MEJIA. PATIENT REPORTS NO PAIN OR NAUSEA AT THIS TIME. SALINE LOCK TO RFA, PATENT. BED LOW, CALL LIGHT WITHIN REACH. CARE ENDORSED.
--- NOTE | 2018-06-02 19:46 | NUR ---
SHIFT REASSESSMENT DONE.PATIENT ALERT AND ORIENTED.BREATHING EASY.MOVING ALL EXT WELL.BRP.HEPLOCK RFA.RAC HEPLOCK STILL INTACT.MEDSURG PATIENT.SKIN INTACT.NO EDEMA NOTED.ANURIC,HD PATIENT 2 LITERS OUT TODAY.LFA AV SHUNT HD ACCESS.HAD PAIN MED EARLIER.WILL FOLLOW UP.CALL LIGHT IN REACH.
--- NOTE | 2018-06-02 21:48 | NUR ---
PM MEDS GIVEN,SWALLOWS WELL.ATB SCHEDULE.IV SITE GOOD.
[2018-06-02 21:56] VITALS: BP 157/74
--- NOTE | 2018-06-03 01:38 | NUR ---
PATIENT SAYS PAIN IS WORST,HAD PAIN PILL EARLIER,GIVEN PAIN SHOT NOW,SAYS HE WANTS PAIN SHOT IF POSSIBLE,NOT PAIN PILL,BUT I TOLD HIM MAYBE ALTERNATE.
--- NOTE | 2018-06-03 02:16 | NUR ---
LAB BEEN CALLING NEED UA,PATIENT IS ANURIC,HD PATIENT.
--- NOTE | 2018-06-03 04:00 | NUR ---
PATIENT CRYING,SAYS PAIN IS SEVER BUT I CANNOT GIVE PAIN SHOT,TOOSOON,SETTLED FOR KENROY.
[2018-06-03 05:40] VITALS: BP 147/75
--- NOTE | 2018-06-03 06:58 | NUR ---
I AND O,NO URINE THIS SHIFT,ANURIC.GIVEN PAIN MED 4X THIS SHIFT.WILL ENDORSE TO NEXT SHIFT.
[2018-06-03 07:07] LABS: CALCIUM 9.8 mg/dL (8.5-10.1); CARBON DIOXIDE 27.4 mmol/L (21-32); PHOSPHOROUS 4.9 mg/dL (2.5-4.9); POTASSIUM SERUM 4.4 mmol/L (3.5-5.1)
[2018-06-03 07:17] LABS: CREATININE SERUM 9.3 mg/dL (0.7-1.3)
[2018-06-03 07:25] LABS: BASOPHIL % 0.4 % (0-2); PLATELET COUNT 171 x10^3mcL (130-400)
[2018-06-03 07:34] LABS: RED CELL DISTRIBUTION WIDTH 15.3 % (11.5-14.5)
[2018-06-03 08:40] VITALS: BP 150/84
[2018-06-03 17:25] VITALS: BP 146/77
[2018-06-03 21:02] VITALS: BP 140/85
--- NOTE | 2018-06-03 23:54 | NUR ---
PT IS RESTING IN BED WITH EYES CLOSED AT THIS TIME. NO ACUTE DISTRESS NOTED. NO SOB NOTED, SAFETY AND COMFORT MEASURES MAINTAINED, BED IN LOWEST POSITION, CALL LIGHT WITHIN REACH, WILL CONTINUE TO MONITOR AT THIS TIME.
--- NOTE | 2018-06-04 01:59 | NUR ---
PT COMPLAINING OF ABD PAIN AND REQUESTING PAIN MED. GIVEN NORCO AT THIS TIME.
--- NOTE | 2018-06-04 05:20 | NUR ---
PT RESTED IN THE INTERMITTENT INTERVALS THROUGHOUT THE SHIFT, NO ACUTE EVENTS OCCURED THROUGHOUT THE SHIFT, PT HAS BEEN CALM AND COOPERATIVE WITH CARE. PT HAS BEEN ALERT AND ORIENTED X4, NO ACUTE RESP DISTRESS NOTED. SAFETY AND COMFORT MEASURES MAINTAINED, BED IN LOWEST POSITION, CALL LIGHT WITHIN REACH, WILL ENDORSE CONTINUITY OF CARE TO THE ONCOMING RN.
[2018-06-04 06:05] VITALS: BP 157/71
[2018-06-04 06:46] LABS: CALCIUM 9.9 mg/dL (8.5-10.1); CARBON DIOXIDE 26.4 mmol/L (21-32); POTASSIUM SERUM 4.4 mmol/L (3.5-5.1)
[2018-06-04 07:13] LABS: BASOPHIL % 0.1 % (0-2); PLATELET COUNT 195 x10^3mcL (130-400)
[2018-06-04 07:14] LABS: CREATININE SERUM 12.3 mg/dL (0.7-1.3)
[2018-06-04 07:45] LABS: RED CELL DISTRIBUTION WIDTH 14.9 % (11.5-14.5)
[2018-06-04 09:24] VITALS: BP 162/90
[2018-06-04] MEDS ORDERED: LEVAQUIN750 MG PO (11:39)
[2018-06-04 12:13] VITALS: BP 162/90
--- NOTE | 2018-06-04 12:30 | NUR ---
PT. D'CD DOWNASTAIRS TO CATCH UBER VIA WHEELCHAIR ACCOMPANIED BY STAFF. NO NEEDS VOICED.
== END 2018-06-04 13:36 | disposition home or self-care (01) | DRG 244 ==
LOC: ED 15:46 → DU 18:35 → MU 18:35
PROVIDERS: Emergency Medicine; General Practice; Internal Medicine Nephrology; ADMIT Internal Medicine
PROC: 5A1D70Z Performance of Urinary Filtration, Intermittent, Less than 6 Hours Per Day (ICD-10-PCS; principal; 2018-06-02)
DX: K57.32 Diverticulitis of large intestine without perforation or abscess without bleeding (principal); N17.0 Acute kidney failure with tubular necrosis; I12.0 Hypertensive chronic kidney disease with stage 5 chronic kidney disease or end stage renal disease; E44.1 Mild protein-calorie malnutrition; E83.39 Other disorders of phosphorus metabolism; E87.1 Hypo-osmolality and hyponatremia; N18.6 End stage renal disease; Q61.2 Polycystic kidney, adult type; Z99.2 Dependence on renal dialysis; Z68.25 Body mass index [BMI] 25.0-25.9, adult; Z83.3 Family history of diabetes mellitus; I16.0 Hypertensive urgency; E83.41 Hypermagnesemia; D64.9 Anemia, unspecified
CPT/HCPCS: 83880; J0360; J1956; J2270; J2405; J2543; J3010; J3490; J7030; J7050; Q0092

== ENCOUNTER 2018-06-21 17:48 | Inpatient (IN) | payer OTHER ==
[~2018-06-21] VITALS: Ht 165.1 cm; Wt 72.6 kg
[~2018-06-21 17:48] MED LIST changes: +ANAPROX DS550 MG PO; +HYDRALAZINE HCL25 MG PO; +LEVAQUIN750 MG PO
[2018-06-21 18:54] VITALS: Ht 165.1 cm; Wt 72.6 kg
--- NOTE | 2018-06-21 19:38 | NUR ---
PT LYING IN BED, AAOX4 WITH C/O GENERALIZED ABD PAIN 7/10 SINCE YESTERDAY WITH NAUSEA/CONSTIPATION AND DARK/BLOODY STOOLS. PT IS ANURIC, ESRD/HD MWF. PT STATED HE WAS AT DIALYSIS WHICH WAS STOPPED AFTER 1L DUE TO C/O PAIN AND WAS TOLD TO COME HERE.
--- NOTE | 2018-06-21 20:45 | NUR ---
PT GIVEN IV FENTANYL FOR INCREASED ABD PAIN.
[2018-06-21 20:58] LABS: BASOPHIL % 0.6 % (0-2); PLATELET COUNT 295 x10^3mcL (130-400)
[2018-06-21 21:01] LABS: ALBUMIN 3.5 g/dL (3.4-5.0); BILIRUBIN TOTAL 2.28 mg/dL (0.20-1.00); CALCIUM 9.8 mg/dL (8.5-10.1); CARBON DIOXIDE 31.4 mmol/L (21-32); POTASSIUM SERUM 4.5 mmol/L (3.5-5.1); TOTAL PROTEIN, SERUM 7.2 g/dL (6.4-8.2)
--- NOTE | 2018-06-21 21:02 | NUR ---
PT RESTING IN BED ON RT SIDE WITH EYES CLOSED WITH NO SIGNS OF DISTRESS AT THIS TIME.
[2018-06-21 21:04] LABS: RED CELL DISTRIBUTION WIDTH 15.9 % (11.5-14.5)
[2018-06-21 21:06] LABS: CREATININE SERUM 9.9 mg/dL (0.7-1.3)
--- NOTE | 2018-06-21 22:30 | NUR ---
PT USED COMMODE FOR BM. SMALL BLACK BM NOTED. DR TAYLOR AT BEDSIDE FOR EXAM. PT LEFT OFF OF FLOOR TO CT SCAN.
--- NOTE | 2018-06-21 23:01 | NUR ---
PT RESTING IN BED WITH EYES CLOSED AND BREATHING EVEN AND UNLABORED.
[2018-06-22] VITALS (8 sets, daily range): BP systolic 127–154; BP diastolic 54–101
--- NOTE | 2018-06-22 00:05 | NUR ---
PT UP ON BSC FOR BM.
--- NOTE | 2018-06-22 00:16 | NUR ---
REPORT GIVEN TO PASTORA ANDERSON.
--- NOTE | 2018-06-22 00:32 | NUR ---
RECEIVED PT VIA [facility] FROM E/D, ACCOMPANIED BY RN AND TRANSPORTER. PT A/A/O X 4, CALM, COOPERATIVE. PT AMBULATORY, ABLE TO WALK FROM [facility] TO BED WITHOUT GAIT OR BALANCE IMPAIRMENT. ON TELE # 2, NSR, HR 78, DENIES CHEST PAIN OR DISCOMFORT AT THIS TIME. NO ACUTE RESPIRATORY DISTRESS NOTED. ABD SOFT, FLAT, NON-TENDER, NORMOACTIVE BOWEL SOUNDS AND TYMPANY UPON PERCUSSION X 4 QUADS, LAST BM 06/21/18, DARK, BLOODY, DENIES PAIN OR DISCOMFORT AT THIS TIME. ANURIC, ON H/D MWF, LFA SHUNT +THRILL/BRUIT, LAST DIALYSIS ON 06/21/18 INTERRUPTED D/T ABD PAIN; TOOK OUT 1 LITER INSTEAD OF 2.5 LITERS. IV SITE RAC 20G, CDI. ORIENTED PT TO ROOM, BED CONTROLS, CALL LIGHT SYSTEM. SIDE RAILS UP X 2, BED IN LOW POSITION. WILL ENDORSE TO JUSTIN GUILLORY.
--- NOTE | 2018-06-22 01:09 | NUR ---
PTB C/O ABDL PAIN 11/14. MORPHINE SULFATE 1 MG IV GIVEN.
--- NOTE | 2018-06-22 01:15 | NUR ---
PT HAD SMALL SOFT BM .
--- NOTE | 2018-06-22 01:18 | NUR ---
PT MEDICATED W/ ATIVAN 1 MG IV TO HELP HIM RELAX AND SLEEP.
--- NOTE | 2018-06-22 02:50 | NUR ---
PT APPEARS TO BE SLEEPING COMFORTABLY AFTER ATIVAN WAS GIVEN.
--- NOTE | 2018-06-22 03:00 | NUR ---
PT MEDICATED W/ ATIVAN 1 MG IV TO HELP HIM RELAX AND SLEEP.
--- NOTE | 2018-06-22 05:12 | NUR ---
PT REMAINS ASLEEP. HE WAS MEDICATED FOR PAIN X1. NO EPISODE OF N/V. HE HAD BM X2 . HL TO RTAC INTACT AND PATENT.
--- NOTE | 2018-06-22 05:45 | NUR ---
PT C/O ABDL PAIN 10/14. MORPHINE SULFATE 1 MG IV GIVEN.
--- NOTE | 2018-06-22 08:00 | NUR ---
SHIFT ASSESSMENT DONE. PATIENT A/A/OX4; CLEAR SPEECH. TELE#2, SR; HR = 72. BREATHING SOUND CLEAR GENEVIEVE. O2 SAT 98% ON RA. NO C/O ABD PAIN NOW. NPO FOR GI CONSULTATION. ANURIC. HEMODIALYSIS PATIENT. AV SHUNT TO LUE, THRILL (+)/ BRUIT (+). IVHL'D TO RAC. AMBULATED ON STEADY GAIT. CALL LIGHT IN REACH.
--- NOTE | 2018-06-22 09:20 | NUR ---
DR. Waqas BRAY CAME TO SEE PATIENT. ORDER OF EGD. CONSENT SIGNED.
--- NOTE | 2018-06-22 09:45 | NUR ---
WENT TO GI LAB.
--- NOTE | 2018-06-22 11:40 | NUR ---
RECEIVED PATIENT FROM POST-OP AFTER FIRST EGD. PATIENT DROWSY, AROUSABLE. V/S = 98.3-73-19-143/118; O2 SAT 100% ON RA. PATIENT WAS AGITATED IN GI LAB AND POST-OP CARE UNIT. BUT CALM NOW.
--- NOTE | 2018-06-22 13:24 | NUR ---
ON HEMODIALYSIS. C/O ABD PAIN ON 08/14. NORCO 5/325 PO GIVEN.
--- NOTE | 2018-06-22 15:00 | NUR ---
H/D DONE. 2L NET OUTPUT. PATIENT WOULD TO GO TO OR FOR EGD W/ MAC.
--- NOTE | 2018-06-22 16:10 | NUR ---
RECEIVED PATIENT FROM OR AFTER EGD W/ MAC. PATIENT DROWSY, AROUSABLE. NO S/S OF PAIN. V/S = 97.4-70-16-127/72; O2 SAST 97% ON RA. CONTINUE MONITOR. AT BED SIDE.
--- NOTE | 2018-06-22 18:34 | NUR ---
A/A/OX4. DENIED ANY PAIN. TOLERATED RENAL DIET. HAD BLACK FORMED BM X2 THIS SHIFT. STOOL OB (+). DR. Waqas BRAY AWARE OF. NO URINE OUTPUT. H/D 2L OUT. IVHL'D TO LAC. ENDORSED CARE TO NOC NURSE.
--- NOTE | 2018-06-22 19:21 | NUR ---
PT RECIEVED FROM THE DAY SHIFT RN. PT IS RESTING IN BED WITH EYES CLOSED AT THIS TIME. NO ACUTE DISTRESS NOTED, NO SOB NOTED, NO FACIAL GRIMACING NOTED. SAFETY AND COMFORT MEASURES MAINTAINED, BED IN LOWEST POSITION, CALL LIGHT WITHIN REACH.
--- NOTE | 2018-06-23 00:34 | NUR ---
PT COMPLAINED OF PAIN. PT STATES PAIN IS IN THE ABDOMEN. PT STATES PAIN IS CONSTANT AND ACHING. PER PT REPORT PT HAS HAD 3 DIARRHEA IN THE LAST 20 MINUTES. PT STATES THE STOOL WAS WATERY AND BLACK. PT MEDICATED WITH PRN MORPHINE. NO FURTHER COMPLAINTS AT THIS TIME.
--- NOTE | 2018-06-23 04:17 | NUR ---
PT RESTING IN BED WITH EYES CLOSED. NO ACUTE DISTRESS NOTED. PT STATED EARLIER IN THE SHIFT THAT HE HAS HAD X6 LOOSE STOOLS. STOOLS WERE BLACK IN COLOR AND LIQUID. PT COMPLAINS OF ABDOMINAL PAIN AND WAS MEDICATED EARLIER IN THE SHIFT WITH IVP MORPHINE. SAFETY AND COMFORT MEASURES MAINTAINED, BED IN LOWEST POSITION, CALL LIGHT WITHIN REACH, WILL CONTINUE TO MONITOR AT THIS TIME.
--- NOTE | 2018-06-23 05:44 | NUR ---
PT HAS SLEPT IN INTERMITTENT INTERVALS THROUGHOUT THE SHIFT, PT HAS BEEN ALERT AND ORIENTED X4, PT HAS COMPLAINED OF ABDOMINAL PAIN AND WAS MEDICATED WITH IVP MORPHINE PER THE MAR. NO SOB NOTED. NO ACUTE RESP DISTRESS NOTED. SAFETY AND COMFORT MEASURES MAINTAINTED, BED IN LOWEST POSITION, CALL LIGHT WITHIN REACH, WILL CONTINUE TO MONITOR AT THIS TIME. WILL ENDORSE CONTINUITY OF CARE TO THE ONCOMING RN.
[2018-06-23 06:00] VITALS: BP 160/97
[2018-06-23 06:40] LABS: CALCIUM 9.5 mg/dL (8.5-10.1); CARBON DIOXIDE 29.1 mmol/L (21-32); PHOSPHOROUS 6.2 mg/dL (2.5-4.9); POTASSIUM SERUM 4.6 mmol/L (3.5-5.1)
[2018-06-23 06:45] LABS: CREATININE SERUM 9.6 mg/dL (0.7-1.3)
[2018-06-23 07:06] LABS: TOTAL IRON BINDING CAPACITY 217 ug/dL (250-450)
[2018-06-23 07:08] LABS: BASOPHIL % 0.9 % (0-2); PLATELET COUNT 213 x10^3mcL (130-400)
[2018-06-23 07:25] VITALS: BP 154/85
[2018-06-23 07:25] LABS: IRON 39 ug/dL (65-170)
--- NOTE | 2018-06-23 07:50 | NUR ---
DIALYSIS NURSE HERE TOSTART HD. PT C/O ABD PAIN. REFUSES NORCO, SAYS LAST DOSE MORPHINE DID NOT HELP.
--- NOTE | 2018-06-23 08:00 | NUR ---
ALERT AND ORIENTED. BREATHING FREELY ON RA. ON GOING WATERY STOOLS. BRP. INDEPENDENT W ADL'S. CALL LIGHT WITHIN REACH.
--- NOTE | 2018-06-23 09:18 | NUR ---
HELD PO BP MEDS AND IV MEDS UNTIL AFTER HD COMPLEED.
[2018-06-23 11:05] VITALS: BP 134/86
--- NOTE | 2018-06-23 12:51 | NUR ---
HD COMPLETED. 2 LITERS OUT. ADMIN ORAL AND IV MEDS. T.C. TO PHARMACY FOR FERRLECIT.
[2018-06-23 15:11] VITALS: BP 140/87
--- NOTE | 2018-06-23 16:34 | NUR ---
CALLED AND SPOKE TO & MADE HIM AWARE THAT HAD CLEARED THE PT ON GI STANDPOINT THAT PT IS OKAY TO D/C HOME TODAY. W/ NEW ORDER OKAY TO D/C HOME TODAY AND CONTINUE HOME MEDICATION AND PRESCRIPTION IN THE CHART. TULIO RN ASSIGNED TO THIS PT MADE AWARE OF ABOVE.
[2018-06-23 16:44] VITALS: BP 140/87
--- NOTE | 2018-06-23 18:05 | NUR ---
DC'D TO HOME. IV DC'D. TELE # 2 RETURNED TO TO TELE STATION. PRESCRIPTIONS GIVEN. TO CALL DR. John BRAY FOR F/U ALVERTO. F/U ALVERTO GIVEN FOR PCP 06/29/18. ALL DC INSTRUCTIONS REVIEWED WITH AND SIGNED BY PT.
== END 2018-06-23 18:14 | disposition home or self-care (01) | DRG 241 ==
LOC: ED 17:48 → DU 23:59
PROVIDERS: Emergency Medicine; Internal Medicine Gastroenterology; Internal Medicine Nephrology; ADMIT Internal Medicine
PROC: 5A1D70Z Performance of Urinary Filtration, Intermittent, Less than 6 Hours Per Day (ICD-10-PCS; 2018-06-22)
PROC: 0W3P8ZZ Control Bleeding in Gastrointestinal Tract, Via Natural or Artificial Opening Endoscopic (ICD-10-PCS; principal; 2018-06-22 09:30)
PROC: 0W3P8ZZ Control Bleeding in Gastrointestinal Tract, Via Natural or Artificial Opening Endoscopic (ICD-10-PCS; 2018-06-22 14:30)
PROC: 0DB68ZX Excision of Stomach, Via Natural or Artificial Opening Endoscopic, Diagnostic (ICD-10-PCS; 2018-06-22 14:30)
DX: K25.4 Chronic or unspecified gastric ulcer with hemorrhage (principal); K57.91 Diverticulosis of intestine, part unspecified, without perforation or abscess with bleeding; I12.0 Hypertensive chronic kidney disease with stage 5 chronic kidney disease or end stage renal disease; Q61.3 Polycystic kidney, unspecified; E83.39 Other disorders of phosphorus metabolism; N18.6 End stage renal disease; Z99.2 Dependence on renal dialysis; K59.00 Constipation, unspecified; K26.4 Chronic or unspecified duodenal ulcer with hemorrhage; Z83.3 Family history of diabetes mellitus; Z79.899 Other long term (current) drug therapy; D50.0 Iron deficiency anemia secondary to blood loss (chronic)
CPT/HCPCS: 43235; C9113; J1200; J1610; J2060; J2250; J2270; J2310; J2405; J2550; J2916; J3010; J3490; J7030; Q0092

== ENCOUNTER 2018-10-20 08:38 | Day surgery (SDC) | payer OTHER ==
[~2018-10-20] VITALS: Ht 165.1 cm; Wt 67.1 kg
[2018-10-20 09:44] VITALS: BP 163/93
[2018-10-20 14:17] VITALS: BP 141/93
== END 2018-10-20 13:00 | disposition home or self-care (01) ==
LOC: GI 08:38 → OR 13:00 → GI 13:00
DX: K29.50 Unspecified chronic gastritis without bleeding (principal); K52.9 Noninfective gastroenteritis and colitis, unspecified; I12.0 Hypertensive chronic kidney disease with stage 5 chronic kidney disease or end stage renal disease; N18.6 End stage renal disease; R34 Anuria and oliguria; Z87.11 Personal history of peptic ulcer disease; Z79.899 Other long term (current) drug therapy; Z98.890 Other specified postprocedural states; Z99.2 Dependence on renal dialysis; Z79.1 Long term (current) use of non-steroidal anti-inflammatories (NSAID)
CPT/HCPCS: 43235; J1200; J1610; J2250; J2310; J3010; J3490

== ENCOUNTER 2018-10-22 13:00 | Inpatient (IN) | payer OTHER ==
[~2018-10-22] VITALS: Ht 165.1 cm; Wt 65.3 kg
[2018-10-22 13:07] VITALS: Ht 165.1 cm; Wt 65.3 kg
--- NOTE | 2018-10-22 13:12 | NUR ---
PT BIB AMBULANCE TODAY WITH C/C OF RECTAL BLEEDING SINCE TUESDAY. PT REPORTS HE HAS A GI PROCEDURE DONE ON TUESDAY AND HAD POLYPS REMOVED. SINCE THE PROCEDURE ON TUESDAY PT HAS NOTICED OCCASIONAL BRIGHT RED BLOOD IN STOOL. THIS AM, PT BEGAN FEELING SOB AND CP X1 HR JEWEL DIAMETER GAUGER, BUT HAS NOW COMPLETELY RESOLVED. OTHERWISE, PT DENIES ANY PAIN. PT IS AWAKE AND ALERT, RESP E/U, SPEAKING IN FULL CLEAR SENTENCES, NAD NOTED, AWAITING MSE. PT ALSO C/O GENERLIZED BODY WEAKNESS SINCE HIS PROCEDURE.
--- NOTE | 2018-10-22 14:05 | NUR ---
PT MEDICATED PER ORDER, PT VERBALIZED UNDERSTANDING OF MEDICATION PRIOR TO ADMINISTRATION.
[2018-10-22 14:35] LABS: PLATELET COUNT 138 x10^3mcL (130-400)
[2018-10-22 14:42] LABS: RED CELL DISTRIBUTION WIDTH 18.6 % (11.5-14.5)
[2018-10-22 14:48] LABS: BILIRUBIN TOTAL 0.59 mg/dL (0.20-1.00); CALCIUM 8.6 mg/dL (8.5-10.1); CARBON DIOXIDE 31.7 mmol/L (21-32); POTASSIUM SERUM 4.3 mmol/L (3.5-5.1)
[2018-10-22 14:54] LABS: ALBUMIN 2.9 g/dL (3.4-5.0); TOTAL PROTEIN, SERUM 5.7 g/dL (6.4-8.2)
[2018-10-22 14:59] LABS: BAND NEUTROPHIL 2 % (0-10); MONOCYTE 6 % (0-7); SEGMENTED NEUTROPHILS 76 % (37-75)
[2018-10-22 15:01] LABS: rbc morphology (normal/abnorm) ABNORMAL (NORMAL)
[2018-10-22 15:02] LABS: ovalocyte/elliptocyte 1+
[2018-10-22 15:03] LABS: PLATELET MORPHOLOGY PLATELET S.DECREASED
--- NOTE | 2018-10-22 15:09 | NUR ---
DR MCDONOUGH AT BEDSIDE TO SPEAK WITH PT REGARDING NEED FOR BLOOD TRANSFUSION. ALL RISKS AND BENEFITS EXPLAINED TO PT. PT AGREED FOR BLOOD TRANSFUSION. PT SIGNED CONSENT, WITNESSED BY MYSELF.
[2018-10-22] MEDS ORDERED: ZESTRIL20 MG PO (15:15)
[2018-10-22] MEDS ORDERED: SENSIPAR30 M1 PO (15:15)
[2018-10-22] MEDS ORDERED: METOPROLOL TART50 MG PO ×2 (15:16)
[2018-10-22] MEDS ORDERED: FERROUS SULFAT325 M2 PO (15:16)
[2018-10-22] MEDS ORDERED: NOR10 PO ×2 (15:16→15:17)
[2018-10-22] MEDS ORDERED: VELPHORO500 MG PO (15:17)
[2018-10-22] MEDS ORDERED: ANAPROX DS550 MG PO (15:17)
[2018-10-22] MEDS ORDERED: AMOXICILLIN500 MG PO (15:18)
[2018-10-22] MEDS ORDERED: HYDRALAZINE HCL50 MG PO (15:18)
[2018-10-22] MEDS ORDERED: HYDRALAZINE HCL25 MG PO (15:19)
[2018-10-22] MEDS ORDERED: OMEPRAZOLE40 M1 PO (15:19)
[2018-10-22] MEDS ORDERED: CLARITHROMYCIN500 M1 PO (15:19)
--- NOTE | 2018-10-22 16:20 | NUR ---
CALLED BLOOD BANK, PER TECH, BLOOD WON'T BE READY FOR 15-30 MINUTES.
--- NOTE | 2018-10-22 16:23 | NUR ---
REPORT CALLED TO JUSTIN LOREDO TO ASSUME CARE FOR PT.
--- NOTE | 2018-10-22 16:28 | NUR ---
PT TRANSPORTED TO TELE AT THIS TIME. PT IS AWAKE AND ALERT, RESP E/U, VERBALIZED UNDERSTANDING OF PLAN OF CARE FOR ADMISSION. TRANSPORTED BY EMT CHI AND RN SABINE. NAD NOTED UPON LEAVING ED.
--- NOTE | 2018-10-22 16:30 | NUR ---
RECEIVED PT VIA GUERNEY FROM E/D, ACCOMPANIED BY RN AND TRANSPORTER. PT A/A/O X 4, CALM, COOPERATIVE. PT W/ GENERALIZED WEAKNESS BUT ABLE TO AMBULATE W/ SLOW, STEADY GAIT, C/O CONSTANT ACHING PAIN TO JOINTS /10, EXACERBATED BY MOVEMENT AND WALKING, RELIEVED BY REST AND PAIN MEDICATIONS; FALL RISK PROTOCOL IN PLACE. DENIES CHEST PAIN OR DISCOMFORT AT THIS TIME. SCD BY BEDSIDE. LUNGS CTAB, CHEST RISING EVENLY, 2LNC, 100%, NO ACUTE RESPIRATORY DISTRESS NOTED. ABD SOFT, FLAT, NON-TENDER, NORMOACTIVE BOWEL SOUNDS X 4 QUADS, LAST BM 10/22/18, BLOODY. OLIGURIC, LFA AV SHUNT +THRILL/BRUIT, H/D MWF, MISSED 10/20/18 D/T EGD/POLYP REMOVAL, COMPLETED 10/21/18 H/D SESSION INSTEAD. IV SITE RH 20G, CDI. ORIENTED PT TO ROOM, BED CONTROLS, CALL LIGHT SYSTEM. SIDE RAILS UP X 2, BED IN LOW POSITION. WILL ENDORSE TO JUSTIN LOREDO.
[2018-10-22 16:37] VITALS: BP 156/90
[2018-10-22 16:59] LABS: T3 TOTAL 1.03 ng/mL
[2018-10-22 17:01] LABS: RED BLOOD CELLS 2.21 M/mm3 (4.52-5.90)
[2018-10-22 17:02] LABS: FREE T4 1.4 ng/dL (0.76-1.46); FREE THYROXINE INDEX 3.7 ug/dL (1.4-4.5)
[2018-10-22 17:04] LABS: CHOLESTEROL/HDL RATIO 3.6; MAGNESIUM 2.7 mg/dL (1.8-2.4); PHOSPHOROUS 5.2 mg/dL (2.5-4.9)
[2018-10-22 17:05] VITALS: BP 156/90
[2018-10-22 17:43] LABS: IRON 67 ug/dL (65-170)
[2018-10-22 17:45] LABS: TOTAL IRON BINDING CAPACITY 232 ug/dL (250-450)
--- NOTE | 2018-10-22 17:51 | NUR ---
1ST UNIT OF PRBC STARTED. B/P= 158/92, P= 72, R.R.= 18, T= 98.8, O2 SAT.= 99% (WITH O2 AT 2L NC).
--- NOTE | 2018-10-22 18:48 | NUR ---
REMAINS IN STABLE CONDITION AT THIS TIME. 1ST UNIT OF PRBC IS ON-GOING.
--- NOTE | 2018-10-22 19:05 | NUR ---
PT RECEIVED FROM THE DAY SHIFT RN. PT IS ALERT AND ORIENTED X4, PT APPEARS TO BE LETHARGIC BUT EASILY AROUSABLE TO VERBAL STIMULUS. PT IS CALM AND COOPERATIVE WITH CARE, NO ACUTE DISTRESS NOTED. PT IS CURRENTLY INFUSING BLOOD AT THIS TIME. LEFT FOREARM AV SHUNT BRUIT AND THRILL HEARD UPON AUSCULTATION. PT HAS NO COMPLAINT OF PAIN AT THIS TIME. SAFETY AND COMFORT MEASURES MAINTAINED, BED IN LOWEST POSITION, CALL LIGHT WITHIN REACH.
[2018-10-22 20:46] VITALS: BP 154/99
--- NOTE | 2018-10-22 21:17 | NUR ---
PT 1 UNIT OF PRBC TRANSFUSION COMPLETE. PT IS AWAKE AND ORIENTED X4, CALM AND COOPERATIVE WITH CARE, POST VITAL SIGNS ARE FOLLOWS HR 72, BP 158/99, RR 18, SPO2 96%, TEMP 99.5 TEMPORAL, NO S/S OF INFILTRATION OR INFECTION AT IV SITE, PT DENIES CHILLS, VOMITING, PAIN, DYSPNEA, NO FACIAL FLUSHING NOTED, NO EDEMA PRESENT, WILL CONTINUE TO MONITOR.
--- NOTE | 2018-10-22 21:55 | NUR ---
PT PRE BLOOD TRANSFUSION VITAL SIGNS ARE FOLLOWS: BP 148/92, RR 18, SPO2 95% ON ROOM AIR, TEMP 99.3, PT DENIES FEVER, CHILLS, SOB, URTICARIA. PT IS ALERT AND ORIENTED X4, CALM AND COOPERATIVE WITH CARE, PT LUNGS ARE CTAB, BREATHING IS EQUAL AND UNLABORED. NO ACUTE DISTRESS NOTED. PT DENIES PAIN AT THIS TIME.
--- NOTE | 2018-10-22 22:15 | NUR ---
PT 15 MINS VITALS SIGNS INTO TRANSFUSION IS FOLLOWS: BP IS 144/85, RR 18, SPO2 96%, MA 71, PT DENIES HEADACHE, CHESTPAIN/DIZZINESS, DENIES CHILLS, NO NAUSEA OR VOMITING, DENIES FACIAL FLUSHING, PT DENIES PAIN, NO EDEMA, PT LUNGS ARE CTAB, BREATHING IS EQUAL AND UNLABORED, SAFETY AND COMFORT MEASURES MAINTAINED, BED IN LOWEST POSITION, CALL LIGHT WITHIN REACH.
[2018-10-23] VITALS (9 sets, daily range): BP systolic 152–167; BP diastolic 92–102
--- NOTE | 2018-10-23 00:37 | NUR ---
PT IS RESTING IN BED WITH EYES CLOSED AT THIS TIME. NO ACUTE DISTRESS NOTED. PT IS ALERT AND ORIENTED X4, CALM AND COOPERATIVE WITH CARE. BLOOD IS INFUSING AT THIS TIME. NO ADVERSE REACTIONS NOTED. SAFETY AND COMFORT MEASURES MAINTAINED, BED IN LOWEST POSITION, CALL LIGHT WITHIN REACH.
--- NOTE | 2018-10-23 01:30 | NUR ---
PT BLOOD TRANSFUSION OF PRBC COMPLETE. POST VITAL SIGNS ARE FOLLOWS: TEMP 98.3, HR 68, SPO2 94% ON ROOM AIR, RR 18. PT DENIES FEVER, CHILLS, HEADACHE, SOB, DIFFICULTY BREATHING. PT BREATHING IS EQUAL AND UNLABORED, NO ACUTE DISTRESS NOTED. NO SIGNS OF ACUTE RESP DISTRESS. SAFETY AND COMFORT MEASURES MAINTAINED, BED IN LOWEST POSITION, CALL LIGHT WITHIN REACH.
--- NOTE | 2018-10-23 04:00 | NUR ---
PT IS RESTING IN BED WITH EYES CLOSED AT THIS TIME. NO ACUTE DISTRESS NOTED. IV IS INFUSING AND INTACT AT THIS TIME. PT HAS BEEN CALM AND COOPERATIVE WITH CARE, AND IS ALERT AND ORIENTED X4, SAFETY AND COMFORT MEASURES MAINTAINED, BED IN LOWEST POSITON, CALL LIGHT WITHIN REACH.
--- NOTE | 2018-10-23 05:14 | NUR ---
PT RESTED IN LONG INTERVALS THROUGHOUT THE SHIFT, PT HAS BEEN CALM AND COOPERATIVE WITH CARE, NO ACUTE DISTRESS NOTED. PT IS ALERT AND ORIENTED X4, NO COMPLAINT OF PAIN AT THIS TIME. IV INFUSING AND INTACT, SAFETY AND COMOFRT MEASURES MAINTAINED, BED IN LOWEST POSITION, CALL LIGHT WITHIN REACH. WILL ENDORSE CONTINUITY OF CARE TO THE ONCOMING RN.
[2018-10-23 05:54] LABS: PLATELET COUNT 122 x10^3mcL (130-400); RED CELL DISTRIBUTION WIDTH 19.3 % (11.5-14.5)
[2018-10-23 06:09] LABS: CALCIUM 8.7 mg/dL (8.5-10.1); CARBON DIOXIDE 30.2 mmol/L (21-32); MAGNESIUM 2.7 mg/dL (1.8-2.4); PHOSPHOROUS 6.6 mg/dL (2.5-4.9); POTASSIUM SERUM 4.9 mmol/L (3.5-5.1)
[2018-10-23 07:16] LABS: CREATININE SERUM 9.5 mg/dL (0.7-1.3)
--- NOTE | 2018-10-23 07:50 | NUR ---
A+OX4, NO RESPRIATORY DISTRESS NOTED, TELE 17, PULSES MODERATE AND EQUAL GENEVIEVE, NO EDEMA NOTED, LUNG SOUNDS CTA, TOLERATING RA, BOWEL SOUNDS ACTIVE, LFA AV SHUNT WITH THRILL AND BRUIT PRESENT, PT TO HAVE HD TODAY, OLIGURIC, GENERALIZED WEAKNESS, SKIN INTACT, IV IN R HAND WITH NS @ 50 ML/HR, SITE WNL.
--- NOTE | 2018-10-23 08:59 | NUR ---
WITNESSED PT SIGN CONSENT FOR EGD.
--- NOTE | 2018-10-23 09:48 | NUR ---
PER DR BRAY, EGD CANNOT BE DONE TODAY BECAUSE PT ATE BREAKFAST. PT NOTIFIED. NO RESPRIATORY DISTRESS NOTED, DENIES PAIN, DENIES NAUSEA, AMENA LIGHT WITHIN REACH.
--- NOTE | 2018-10-23 10:25 | NUR ---
PER TATE GODOY, BLOOD TO BE TRANSFUSED DURING DIALYSIS TODAY.
--- NOTE | 2018-10-23 11:11 | NUR ---
PER DR BRAY PT TO HAVE EGD TOMORROW MORNING. OKAY TO HAVE CLEAR LIQUIDS AT THIS TIME.
--- NOTE | 2018-10-23 11:29 | NUR ---
PT STATES BLISS HAS HAD 3 BLOODY BM TOTAL SINCE [address] BRAY AWARE. PT RESTING IN BED, NO RESPIRATORY DISTRESS NOTED, FAMILY AT BEDSIDE, CALL LIGHT WITHIN REACH.
--- NOTE | 2018-10-23 13:05 | NUR ---
PT AGREEABLE TO COLONSCOPY. WITNESSED PT SIGN CONSENT FOR COLONOSCOPY.
--- NOTE | 2018-10-23 13:47 | NUR ---
PT COMPLAINING OF LEG SPASMS BLE. BARREL TESTER TATE NOTIFIED AND ORDERED TYLENOL PO. TYLENOL PO GIVEN. NO RESPRIATORY DISTRESS NOTED. CALL LIGHT WITHIN REACH.
--- NOTE | 2018-10-23 14:22 | NUR ---
PER GENERAL TECHNICIAN TATE, OKAY FOR PT TO SHOWER. PT GIVEN SHOWER SUPPLIES AND STATED HE DID NOT NEED HELP SHOWERING.
--- NOTE | 2018-10-23 14:25 | NUR ---
PT STATES HE WOULD LIKE TO RECEIVE MOVIPREP AFTER DIALYSIS.
--- NOTE | 2018-10-23 14:50 | NUR ---
PT SHOWERED WITHOUT INCIDENT, NO RESPRIATORY DISTRESS NOTED, CALL LIGHT WITHIN REACH.
--- NOTE | 2018-10-23 16:19 | NUR ---
PT SITTING AT EDGE OF BED, NO RESPIRATORY DISTRESS NOTED, CALL LIGHT WITHIN REACH.
--- NOTE | 2018-10-23 18:50 | NUR ---
BLOOD VERIFIED AND WITNESSED BY CRISTOBAL RN. VS STABLE. BLOOD GIVEN TO PATTERN DATA OPERATOR TO BE GIVEN DURING HEMODIALYSIS. PT RESTING IN BED, DENIES PAIN AND NAUSEA, AMENA LIGHT WITHIN REACH.
--- NOTE | 2018-10-23 19:05 | NUR ---
AFTER 15 MINS, PT HAD NO ADVERSE REACTION TO BLOOD TRANSFUSION. VS STABLE. NO RESPRIATORY DISTRESS NOTED. TRANSFUSION TO CONT DURING DIALYSIS. CALL LIGHT WITHIN REACH. PT CONT TO REQUEST TO DO MOVIPREP AFTER DIALYSIS FINISHES.
--- NOTE | 2018-10-23 19:20 | NUR ---
PT RECEIVED A/O X4, ABLE TO MAKE NEEDS KNOWN. TELE #17, DENIES ANY CP/PRESSURE. PULSES PALPABLE, NO EDEMA PRESENT. BREATHING IS EVEN AND UNLABORED ON RA, DENIES SOB, NO RESP DISTRESS NOTED. ABD SOFT AND NONDISTENDED, BOWEL TONES ACTIVE, PT DENIES ANY N/V. PT ADMITTED FOR GI BLEED, PT REPORTS HAVING BLOODY STOOL X4 TODAY, NO ACTIVE BLEEDING OBSERVED. PT RECEIVED DIALYSIS AT THIS TIME. AV SHUNT TO LFA WITH GOOD BRUIT AND THRILL. MILD GENERALIZED WEAKNESS, AMBULATORY WITH STEADY GAIT. SKIN IS WARM AND DRY, INTACT. PT DENIES HAVING ANY PAIN AT THIS TIME. SL TO RH, PATENT AND INTACT, SITE WNL. NO ACUTE DISTRESS NOTED. DIALYSIS NURSE AT BEDSIDE. CALL LIGHT WITHIN REACH. WILL CONT TOMONITOR.
--- NOTE | 2018-10-23 19:30 | NUR ---
BLOOD TRANSFUSION COMPLETE VIA DIALYSIS, VS STABLE, NO RESPRIATORY DISTRESS NOTED, DENIES PAIN, CALL LIGHT WITHIN REACH, DIALYSIS NURSE AT BEDSIDE.
--- NOTE | 2018-10-23 19:52 | NUR ---
ENDORSED CARE TO BYRON ANDERSON.
--- NOTE | 2018-10-23 20:50 | NUR ---
DIALYSIS COMPLETED WITH 2L OUTPUT. AV SHUNT TO LFA WITH DRSG IN PLACE AND GOOD BRUIT AND THRILL NOTED. NO ACUTE DISTRESS NOTED. CALL LIGHT WITHIN REACH. WILL CONT TO MONITOR.
--- NOTE | 2018-10-23 22:54 | NUR ---
BOWEL PREP INITIATED ORDERED. INSTRUCTED PT TO NOTIFY NURSE IF PT HAS BM, PT VERBALIZES UNDERSTANDING. NO ACUTE DISTRESS OBSERVED. WILL CONT TO MONITOR.
--- NOTE | 2018-10-24 01:02 | NUR ---
PT CONT ON BOWEL PREP AND TOLERATING WELL. PT ABLE TO PRODUCE BM X 3 WITH WATERY, DARK GREEN STOOL NOTED. NO ACUTE DISTRESS NOTED. WILL CONT TO MONITOR.
--- NOTE | 2018-10-24 03:57 | NUR ---
PT C/O 5/10 JOINT PAIN, PRN TYLENOL GIVEN ORDERED. NO ACUTE DISTRESS NOTED. WILL CONT TO MONITOR.
[2018-10-24 05:28] VITALS: BP 167/94
[2018-10-24 06:32] LABS: BASOPHIL % 0.6 % (0-2)
[2018-10-24 06:53] LABS: CALCIUM 9.1 mg/dL (8.5-10.1); CARBON DIOXIDE 28.6 mmol/L (21-32)
--- NOTE | 2018-10-24 06:56 | NUR ---
PT SLEPT AT INTERVALS THROUGHOUT THE EVENING. BREATHING IS EVEN AND UNLABORED, NO RESP DISTRESS NOTED. PT DENIES HAVING ANY PAIN AT THIS TIME. PT COMPLETED BOWEL PREP AND TOLERATED WELL. PT'S LAST BM WAS WATERY CLEAR WITH DARK GREEN SEDIMENTS NOTED. PT REMAINS NPO FOR PROCEDURE TODAY. IV TO RH, PATENT AND INTACT, SITE WNL. NO ACUTE CHANGES ENCOUNTERED DURING SHIFT. ALL NEEDS MET AND ANTICIPATED. CALL LIGHT WITHIN REACH. WILL ENDORSE CARE TO AM NURSE.
[2018-10-24 07:02] LABS: CREATININE SERUM 6.8 mg/dL (0.7-1.3)
--- NOTE | 2018-10-24 07:30 | NUR ---
RECEIVED PT FROM SPANISH LANGUAGE LECTURER. PT AWAKE, ALERT A/OX4. PT ON ROOM AIR WITH NO RESP DISTRESS NOTED. IV ACCESS RIGHT HAND CDI INFUSING NS AT 50ML/HR. PT ON TELE 17, DENIES CHEST PAIN. PERIPHERAL PULSES PALPABLE. NO EDEMA NOTED. PT REPORTS STOOL IS GETTING CLEAR. DENIES ABDOMINAL PAIN AT THIS TIME. PT TO HAVE PROCEDURE TODAY. SAFETY MEASURES IN PLACE, BED LOW AND LOCKED. CALL LIGHT WITHIN REACH.
[2018-10-24 07:35] VITALS: BP 162/84
[2018-10-24 07:50] LABS: PLATELET COUNT 108 x10^3mcL (130-400); RED CELL DISTRIBUTION WIDTH 17.9 % (11.5-14.5)
--- NOTE | 2018-10-24 08:38 | NUR ---
DUE MEDICATIONS GIVEN. PT STOOL WITH GREEN PARTICLES NOTED. NOT CLEAR YET. PT REFUSES IV FLUIDS AT THIS TIME. PT WANTS FREEDOM TO USE THE RESTROOM WHEN NEEDED. WILL CONTINUE TO MONITOR.
--- NOTE | 2018-10-24 09:10 | NUR ---
PT OFF THE FLOOR FOR PROCEDURE AT THIS TIME.
--- NOTE | 2018-10-24 12:12 | NUR ---
PT BACK FROM EGD AT THIS TIME. PT ASLEEP, DROWSY. AROUSABLE. BP 138/86 HR 64. O2 SAT 80-90 ON ROOM AIR, PT ON 2L NC O2 SAT 96% PT COMPLAINS OF THROAT PAIN WHEN AROUSABLE. WILL CONT TO MONITOR.
[2018-10-24 12:14] VITALS: BP 138/86
--- NOTE | 2018-10-24 13:38 | NUR ---
PT DUE MED ADMINISTERED. PT BP 155/101. PT COMPLAINING OF PAIN IN THROAT 08/14. TYLENOL ADMINISTERED FOR COMFORT. WILL CONT TO MONITOR.
--- NOTE | 2018-10-24 14:43 | NUR ---
PT LAYING IN BED WITH NO ACUTE DISTRESS NOTED. FAMILY AT BEDSIDE. PT REPORTS PAIN IS MUCH BETTER AT 2/6. WILL CONTINUE TO MONITOR. SPOKE WITH PHARMACY REGARDING FERRLICIT. MED IS NOT AVAILABLE, PHARMACY WILL ATTEMPT TO LET DR BRAY KNOW. AWAITING FURTHER ORDER.
--- NOTE | 2018-10-24 16:29 | NUR ---
UNABLE TO GIVE FERRLICIT. PER PHARMACY, THEY ARE BACK ORDERED. PHARMACY TO CALL DR BRAY TO MAKE AWARE.
[2018-10-24 17:15] VITALS: BP 162/106
--- NOTE | 2018-10-24 17:19 | NUR ---
PT BP 162/106, DUE HYDRALAZINE ADMINISTERED ORDERED. DUE MEDS GIVEN, PT TOLERATED WELL. PT COMPLAINS OF DISCOMFORT TO THROAT. WILL MEDICATE PRN.
--- NOTE | 2018-10-24 18:26 | NUR ---
PT STABLE AT THIS TIME. ALL NEEDS TENDED TO THROUGHOUT SHIFT. WILL CONTINUE TO MONITOR AND ENDORSE CARE TO SALESPERSON TOY TRAINS AND ACCESSORIES. SAFETY MEASURES MAINTAINED.
--- NOTE | 2018-10-24 19:20 | NUR ---
PT RECEIVED A/O X4, ABLE TO MAKE NEEDS KNOWN. TELE #17, DENIES ANY CP/PRESSURE. PULSES PALPABLE, NO EDEMA PRESENT. BREATHING IS EVEN AND UNLABORED ON RA, DENIES SOB, NO RESP DISTRESS NOTED. ABD SOFT AND NONDISTENDED, BOWEL TONES ACTIVE, PT DENIES ANY N/V. PT ADMITTED FOR GI BLEED, PT DENIES HAVING ANY ACTIVE BLEEDING AT THIS TIME. AV SHUNT TO LFA WITH GOOD BRUIT AND THRILL. MILD GENERALIZED WEAKNESS, AMBULATORY WITH STEADY GAIT. SKIN IS WARM AND DRY, INTACT. PT DENIES HAVING ANY PAIN AT THIS TIME. SL TO RH, PATENT AND INTACT, SITE WNL. NO ACUTE DISTRESS NOTED. CALL LIGHT WITHIN REACH. WILL CONT TO MONITOR.
--- NOTE | 2018-10-24 21:02 | NUR ---
CALLED CHRIS (DIALYSIS NURSE) AND MADE AWARE THAT PT HAS DIALYSIS ORDERED FOR TOMORROW. ALL QUESTIONS AND CONCERNS ADDRESSED.
--- NOTE | 2018-10-24 21:20 | NUR ---
PT C/O EXCESSIVE GAS AND BLOATING, PT REQUESTING MED FOR GAS. DR WRIGHT CALLED AND MADE AWARE. AWAITING ORDERS AT THIS TIME.
[2018-10-24 21:45] VITALS: BP 163/95
--- NOTE | 2018-10-24 22:30 | NUR ---
PT C/O GASSINESS, PRN SIMETHICONE GIVEN ORDERED. NO ACUTE DISTRESS NOTED. WILL CONT TO MONITOR.
--- NOTE | 2018-10-25 00:29 | NUR ---
PT RESTING IN BED WITH EYES CLOSED, BUT IS EASILY AROUSABLE. BREATHING IS EVEN AND UNLABORED, NO RESP DISTRESS NOTED. NO S/S OF PAIN OBSERVED. NO ACUTE DISTRESS NOTED. CALL LIGHT WITHIN REACH. WILL CONT TO MONITOR.
--- NOTE | 2018-10-25 01:57 | NUR ---
PT C/O INSOMNIA, DR WRIGHT MADE AWARE. ORDERS RECEIVED. PRN AMBIEN GIVEN ORDERED. NO ACUTE DISTRESS NOTED. CALL LIGHT WITHIN REACH. WILL CONT TO MONITOR.
[2018-10-25 05:40] VITALS: BP 172/111
--- NOTE | 2018-10-25 05:41 | NUR ---
PT'S BP-172/111 (128), HR-78. PT SCHEDULED FOR DIALYSIS TODAY. DR WRIGHT CALLED AND MADE AWARE. PER MD, WILL NOTIFY SENIOR RESIDENT. NO NEW ORDERS AT THIS TIME.
[2018-10-25 06:26] LABS: BASOPHIL % 1.5 % (0-2)
[2018-10-25 06:46] VITALS: BP 160/99
--- NOTE | 2018-10-25 06:48 | NUR ---
PT SLEPT WELL THROUGHOUT THE EVENING. BREATHING IS EVEN AND UNLABORED, NO RESP DISTRESS NOTED. PT DENIES HAVING ANY PAIN AT THIS TIME. ORDERS RECEIVED FOR HIGH BP. ONE TIME DOSE OF HYDRALAZINE IVP GIVEN ORDERED. RECHECKED BP AFTER HYDRALAZINE-160/99, HR-77. PT SCHEDULED FOR DIALYSIS TODAY. NO ACUTE CHANGES ENCOUNTERED DURING SHIFT. ALL NEEDS MET AND ANTICIPATED. SL TO , PATENT AND INTACT, SITE WNL. CALL LIGHT WITHIN REACH. WILL ENDORSE CARE TO AM NURSE.
[2018-10-25 06:51] LABS: CALCIUM 8.8 mg/dL (8.5-10.1); CARBON DIOXIDE 24.7 mmol/L (21-32)
--- NOTE | 2018-10-25 07:24 | NUR ---
PT IN NO ACUTE DISTRESS. CONTINUITY OF CARE ENDORSED TO SCOTTIE ANDERSON. ALL QUESTIONS AND CONCERNS ADDRESSED.
--- NOTE | 2018-10-25 07:30 | NUR ---
RECEIVED BEDSIDE REPORT FROM NURSE AT THIS TIME. PATIENT RESTING COMFORTABLY SITTING ON SIDE OF BED. NO APPARENT DISTRESS OR DISCOMFORT NOTED. BREATHING EVEN AND UNLABORED. NO RESPIRATORY DISTRESS OR DISCOMFORT NOTED. PATIENT DENIES CHEST PAIN AT THIS TIME.AV SHUNT NOTED TO LFA WITH BRUIT AND THRILL. IV PATENT AND INTACT. ALL QUESTIONS AND CONCERNS ADDRESSED. ALL NEEDS ATTENDED TO. WILL CONTINUE TO MONITOR
[2018-10-25 08:27] LABS: CREATININE SERUM 9.1 mg/dL (0.7-1.3)
[2018-10-25 08:37] LABS: PLATELET COUNT 106 x10^3mcL (130-400); RED CELL DISTRIBUTION WIDTH 18.7 % (11.5-14.5)
--- NOTE | 2018-10-25 09:10 | NUR ---
PER DR BRAY, 1 UNIT OF BLOOD TO BE GIVEN DURING DIALYSIS TODAY. AWAITING BLOOD TO BE READY. ALL NEEDS ATTENDED TO. WILL CONTINUE TO MONITOR
[2018-10-25 09:45] VITALS: BP 172/104
--- NOTE | 2018-10-25 09:53 | NUR ---
ALL MORNING MEDICATIONS ADMINISTERED. PATIENT TOLERATED MEDICATIONS WELL. NO ADVERSE EFFECTS NOTED. ALL NEEDS ATTENDED TO. WILL CONTINUE TO MONITOR
[2018-10-25] MEDS ORDERED: PROTONIX20 MG PO (09:54)
[2018-10-25] MEDS ORDERED: AMOXICILLIN500 MG PO (09:54)
[2018-10-25] MEDS ORDERED: BIA500 PO (09:54)
--- NOTE | 2018-10-25 11:26 | NUR ---
Initial Nutrition Assessment: / BERNARDO DINERO IA HR Dx: GI Bleed, anemia PMHx: HTN and ESRD (On dialysis M/W/F) PSHx: AV fistula Labs: BUN 68H, CREAT 9.1H, P 6.6H, MG 2.7H Meds: Ambien, Colace, ferrous sulfate, miralax, zofran Diet: Renal PO Intake: (10/24) lunch 100%, (10/23) NPO, (10/22) dinner 60% Ht: 165.1 cm (65") Wt: 65 kg (144#) BMI: 24 kg/m2 Bed scale: 67.8 kg IBW: 136# (62 kg) %IBW: 105 UBW: 65-57 kg Age: 33/M Food Allergies: NKFA Skin: intact Nicolas: 20 Edema: none GI: Last BM: 10/24 Per H&P, Pt is a 33-year-old male with history of HTN and ESRD (On dialysis M/W/F), brought in by ambulance for rectal bleeding for [address] days[address] RDN Visit (10/25): Patient was alert and oriented but was c/o abd pain d/t gas. Pt said that his appetite declined since yesterday night when he started getting abd pain. Pt said he ate only cream of what for breakfast this morning. Problem with: N/V/D/C: none, abd pain Problems with: Chewing/Swallowing: none Current appetite: poor Recent wt change: none %wt change: n/a Vitamin/Supplement use: vitamin D Special diet at home: Renal Physical activity: walking Nutrition education given: [place] handout on "CKD Stage 5: tips for people on dialysis" was provided and concepts like low sodium foods, label readings were emphasized. Food-drug interactions: Colace- high fiber w/0449-0542 ml fluids Education given: yes Estimated Nutritional Needs Based on actual body weight 65 kg Energy: 7030-9529 kcal/d (30-35 kcal/kg) Protein: 78-97 g/d (1.2-1.5 g/kg) - hemodialysis Fluid: per doctor d/t HD Nutrition Diagnosis 1. Inadequate oral intake related to poor appetite 2/2 abd pain as evidenced by self-reported poor PO <50%. 2. Increased nutrient needs related to increased metabolic demands as evidenced by hemodialysis and estimated calorie and protein needs. Intervention 1. Recommend continuing Renal diet. 2. Recommend Nepro BID. This will provide additional 850 kcal and 20g protein. Discussed recommendations with WALT Millan. Monitor/Evaluate Goal: PO intake at least 75% of estimated needs Monitor: PO intake, Labs, GI function F/U in 3-5 days as moderate risk
--- NOTE | 2018-10-25 11:27 | NUR ---
1. Recommend continuing Renal diet. 2. Recommend Nepro BID. This will provide additional 850 kcal and 20g protein. Discussed recommendations with WALT Millan
--- NOTE | 2018-10-25 12:45 | NUR ---
PATIENT SITTING UP IN BED EATING LUNCH AT THIS TIME. PATIENT TOLERATING DIET WELL. NO APPARENT DISTRESS OR DISCOMFORT NOTED. ALL NEEDS ATTENDED TO. WILL CONTINUE TO MONITOR
[2018-10-25 14:49] VITALS: BP 168/99
--- NOTE | 2018-10-25 16:08 | NUR ---
1 UNIT BLOOD INITIATED AT THIS TIME DURING DIALYSIS. PATIENT TOLERATING WELL. PRE VITAL SIGNS TEMP 99.3, PULSE 71, BP 154/93, RESP 17 O2 93% ON ROOMAIR. PATIENT RESTING COMFORTABLY IN BED. NO APPARENT DISTRESS OR DISCOMFORT NOTED. ALL NEEDS ATTENDED TO. WILL CONTINUE TO MONITOR
--- NOTE | 2018-10-25 16:20 | NUR ---
15 MINUTES WITH BLOOD TRANSFUSION AT THIS TIME. PATIENT TOLERATING WELL. NO ADVERSE EFFECTS NOTED. PATIENT DENIES SHORTNESS OF BREATH, NAUSEA, VOMITING. VITAL SIGNS STABLE TEMP 98.9, HR 74, BP 148/94, RR 18, 99% O2 ON ROOMAIR. ALL NEEDS ATTENDED TO. WILL CONTINUE TO MONITOR
--- NOTE | 2018-10-25 16:35 | NUR ---
BLOOD TRANSFUSION COMPLETE AT THIS TIME DURING DIALYSIS. 300ML ADMINISTERED. PATIENT TOLERATED WELL. NO ADVERSE EFFECTS NOTED. VITAL SIGNS STABLE. TEMP 99.1, HR 74, BP 155/90, RR 18. O2 99% ON ROOM AIR. ALL NEEDS ATTENDED TO. WILL CONTINUE TO MONITOR
[2018-10-25 17:16] VITALS: BP 151/91
--- NOTE | 2018-10-25 17:58 | NUR ---
PATIENT C/O GAS PAIN AT THIS TIME. PATIENT MEDICATED WITH BENTLY. NO ADVERSE EFFECTS NOTED. ALL NEEDS ATTENDED TO. WILL CONTINUE TO MONITOR
--- NOTE | 2018-10-25 18:51 | NUR ---
PATIENT IN BED SITTING UNCOMFORTABLY WHILE HAVING DILAYSIS. PATIENT WITH C/O GAS PAINS S/P BENTYL ADMINISTRATION. REASSESSED PATIENT FOUND TO HAVE SECOND QUADRANT TYMPANY UPON PERCUSSION, TENDERNESS, BORBORIGAMY THROUGHOUT X4 QUADRANTS. PAGED DR WRIGHT AT THIS TIME. AWAITING CALL BACK. IV PATENT AND INTACT. ALL QUESTIONS AND CONCERNS ADDRESSED. ALL NEEDS ATTENDED TO. SAFETY PRECAUTIONS MAINTAINED. WILL ENDORSE ALL CARE TO GUARDIAN AD LITEM NURSE
--- NOTE | 2018-10-25 19:56 | NUR ---
RECEIVED PATIENT IN BED SITTING AT BEDSIDE WITH FAMILY MEMBERS IN ROOM. C/O ABDOMINAL PAIN AND SORETHROAT, TYLENOL 350MG GIVEN PO BU TPER PATIENT HE'S RECIVING IT SINCE THIS MORNING BUT NO RELIEF NOTED. PATIENT AND FAMILY MEMBERS ARE ALL UPSET AND REQUESTED TO TALKED WITH THE DOCTOR, DR FABBY FLOWERS. AWAITING FOR ORDERS.
--- NOTE | 2018-10-25 20:08 | NUR ---
DR SEQUEIRA IN PATIENT ROOM THIS TIME DISCUSSING PATIENT SPECIFIC CONCERNS.
[2018-10-25 21:19] VITALS: BP 165/99
--- NOTE | 2018-10-25 22:10 | NUR ---
C/O GAS PAIN AND ABDOMINAL PAIN, TRAMADOL 50MG PO GIVEN PRESCRIBED. WILL CONTINUE TO MONITOR.
--- NOTE | 2018-10-26 | NUR ---
STILL C/O GAS DISCOMFORT, RESIDENT TO MAKE AWARE. WILL CONTIUE TO MONITOR.
--- NOTE | 2018-10-26 01:36 | NUR ---
APPEARS TO BE SLEEPING AT THIS TIME, BREATHING EASY AND NONLABOR.
[2018-10-26 04:57] VITALS: BP 163/95
--- NOTE | 2018-10-26 05:09 | NUR ---
SLEPT FAIRLY C/O PAIN AND ABDOMINAL DISCOMFORT X2 AND MEDCIATED PRESCRIBED. ALL NEEDS ATTENDED.
--- NOTE | 2018-10-26 07:00 | NUR ---
RECEIVED BEDSIDE REPORT FROM BOILER REPAIR SUPERVISOR NURSE AT THIS TIME. PATIENT RESTING COMFORTABLY IN BED. NO APPARENT DISTRESS OR DISCOMFORT NOTED. BREATHING EVEN AND UNLABORED. NO RESPIRATORY DISTRESS OR DISCOMFORT NOTED. PATIENT DENIES CHEST PAIN/PRESSURE. IV PATENT AND INTACT. AV SHUNT NOTED TO LFA WITH BRUIT AND THRILL. ALL QUESTIONS AND CONCERNS ADDRESSED. ALL NEEDS ATTENDED TO. WILL CONTINUE TO MONITOR
[2018-10-26 09:08] VITALS: BP 152/98
[2018-10-26 09:48] VITALS: BP 152/98
--- NOTE | 2018-10-26 11:27 | NUR ---
PATIENT STABLE TO BE DISCHARGED TO HOME. DISCHARGE INSTRUCTIONS GIVEN WELL EDUCATION. INSTRUCTED PATIENT ABOUT FOLLOW UP APPOINTMENT. PATIENT VERBALIZES UNDERSTANDING. IV REMOVED WITH CATH INTACT.ID BANDS REMOVED. TELE MONITOR REMOVED AND RETURNED TO PROJECT MANAGEMENT PROFESSOR. ALL BELONGINGS WITH PATIENT. ALL QUESTIONS AND CONCERNS ADDRESSED. ALL NEEDS ATTENDED TO. ESCORTED DOWN TO THE LOBBY VIA WHEELCHAIR AT THIS TIME.
== END 2018-10-26 11:26 | disposition home or self-care (01) | DRG 810 ==
LOC: ED 13:00 → DU 15:24
PROVIDERS: Emergency Medicine; General Practice; Internal Medicine Gastroenterology; ADMIT Internal Medicine
PROC: 0W3P8ZZ Control Bleeding in Gastrointestinal Tract, Via Natural or Artificial Opening Endoscopic (ICD-10-PCS; principal; 2018-10-24 11:00)
DX: K91.841 Postprocedural hemorrhage of a digestive system organ or structure following other procedure (principal); I12.0 Hypertensive chronic kidney disease with stage 5 chronic kidney disease or end stage renal disease; E83.39 Other disorders of phosphorus metabolism; D62 Acute posthemorrhagic anemia; N18.6 End stage renal disease; Z99.2 Dependence on renal dialysis; Z68.23 Body mass index [BMI] 23.0-23.9, adult
CPT/HCPCS: 43235; 83880; 84439; 90732; C9113; G0378; J0171; J0360; J1200; J1610; J2250; J2310; J2405; J2597; J2916; J3010; J3490; J7030; J7040; P9016; Q0092; Q0163

== ENCOUNTER 2019-07-30 07:53 | Emergency (ER) | payer OTHER ==
[~2019-07-30] VITALS: Ht 165.1 cm; Wt 69.4 kg
[~2019-07-30 07:53] MED LIST changes: +AMOXICILLIN500 MG PO; +BIA500 PO; +CLARITHROMYCIN500 M1 PO; +FERROUS SULFAT325 M2 PO; +HYDRALAZINE HCL50 MG PO; +METOPROLOL TART50 MG PO; +OMEPRAZOLE40 M1 PO; +PROTONIX20 MG PO; +VELPHORO500 MG PO; +ZESTRIL20 MG PO
[2019-07-30 08:10] VITALS: BP 132/82; Ht 165.1 cm; Wt 69.4 kg
== END 2019-07-30 08:49 | disposition home or self-care (01) ==
LOC: ED 07:53
DX: I12.0 Hypertensive chronic kidney disease with stage 5 chronic kidney disease or end stage renal disease (principal); N18.6 End stage renal disease; R31.9 Hematuria, unspecified; Z99.2 Dependence on renal dialysis; Z98.890 Other specified postprocedural states

== ENCOUNTER 2020-02-02 22:03 | Emergency (ER) | payer OTHER ==
[2020-02-02 23:04] VITALS: Ht 165.1 cm
[2020-02-02 23:50] LABS: BASOPHIL % 0.7 % (0-2); PLATELET COUNT 104 x10^3mcL (130-400); RED CELL DISTRIBUTION WIDTH 13.7 % (11.5-14.5)
[2020-02-03 00:03] LABS: ALBUMIN 3.7 g/dL (3.4-5.0); BILIRUBIN TOTAL 0.9 mg/dL (0.20-1.00); CALCIUM 8.4 mg/dL (8.5-10.1); CARBON DIOXIDE 30.6 mmol/L (21-32); POTASSIUM SERUM 3.4 mmol/L (3.5-5.1)
[2020-02-03 00:08] LABS: CREATININE SERUM 9.1 mg/dL (0.7-1.3)
[2020-02-03 01:21] VITALS: BP 164/101
== END 2020-02-03 01:21 | disposition home or self-care (01) ==
LOC: ED 22:03
PROVIDERS: Emergency Medicine
DX: I16.0 Hypertensive urgency (principal); E11.22 Type 2 diabetes mellitus with diabetic chronic kidney disease; I12.0 Hypertensive chronic kidney disease with stage 5 chronic kidney disease or end stage renal disease; N18.6 End stage renal disease; Z99.2 Dependence on renal dialysis
CPT/HCPCS: J0360; J3490